=== PATIENT | male | born 1965 | race Caucasian/White ===

== ENCOUNTER 2018-03-07 04:24 | Emergency (ER) | payer BC, SELFPAY ==
[2018-03-07 04:26] VITALS: BP 151/99; PULSE 92; RESP 22; TEMP 36.6; O2SAT 98; BMI 33.9
[2018-03-07 04:32] VITALS: O2SAT 98
--- NOTE | 2018-03-07 04:50 | EKG12_ITS ---
Test Reason : CP Blood Pressure : / mmHG Vent. Rate : 092 BPM Atrial Rate : 092 BPM P-R Int : 160 ms QRS Dur : 076 ms QT Int : 336 ms P-R-T Axes : 051 050 053 degrees QTc Int : 415 ms Normal sinus rhythm Normal ECG Confirmed by ANGELA ARCINIEGA, JC ([id number]), supervising editor trailer CAVLIN SOLOMON ([id number]) on 03/11/2018 2:57:05 PM Referred By: ROBE Confirmed By:JC MILLER MD
--- NOTE | 2018-03-07 04:52 | RAD_ITS ---
STUDY: X-RAY CHEST REASON FOR EXAM: Male, 52 years old. Chest pain TECHNIQUE: Single frontal view of the chest. COMPARISON: 04/05/2015 FINDINGS: Granuloma in the left upper lobe. The lungs are clear and expanded. There is no demonstrated pleural abnormality. Normal size heart. Normal mediastinum and jose j. Normal visualized pulmonary arteries. Normal visualized aortic arch and descending thoracic aorta. There are diffuse degenerative changes of the visualized thoracic spine. Normal visualized ribs, clavicles, and shoulders. There is no demonstrated abnormality of the visualized soft tissue structures of the upper abdomen. RAD/Chest 1 View (Portable) IMPRESSION: No acute pulmonary findings. Electronically Signed: Franco Neil MD at 5:07 EDT Tel , Service support ,
--- NOTE | 2018-03-07 05:01 | ED.DCSUM_ITS ---
History of Present Illness Chief Complaint: Chest Pain Informant: Patient Onset: Yesterday - around 10-11 hrs ago Context: Sudden Onset - relatively. noticed while at rest. Timing: Continuous - has not resolved since its onset Quality: heavy Location: left chest Current Severity: Moderate Maximum Severity: Moderate Worsened by: pushing himself up w/ his arms while seated. deep inspiration. Relieved by: breathing easy and remaining still. Associated Symptoms: mild sob Narrative: Patient states this is nonexertional, but pleuritic discomfort that is also worse with certain movements. No injury or recent heavy lifting. He felt some heaviness in his left arm earlier but that is gone now. No sharp tearing pain, loss of consciousness, palpitations, sweats, or nausea. No history of heart problems. No recent leg pain or swelling. 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 No recent hospitalizations, surgeries, no prior DVT or PE. 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 no other illicit substances. Review of Systems All systems negative except as indicated Cardiovascular: Reports: Chest pain. Denies: Palpitations, Heart racing Respiratory: Reports: Dyspnea. Denies: Cough, Dyspnea on exertion, Orthopnea, Paroxysmal nocturnal dyspnea Gastrointestinal: Denies: Abdominal pain, Nausea, Vomiting, Diarrhea Musculoskeletal: Reports: Extremity Pain - LUE, gone. Denies: Back pain, Swelling Skin: Denies: Rash Neurological: Denies: Headache Physical Exam Vital Signs/Narrative: Vital Signs Temp Pulse Resp BP Pulse Ox 03/07/18 04:32 98 03/07/18 04:26 97.9 F 92 22 H 151/99 H 98 Inital Vital Signs reviewed: Yes General: Well nourished, Well developed, - - well-appearing, nad Head: Normocephalic, Atraumatic Eyes: Perrl, EOMI ENT: Moist mucous membranes, No rhinorrhea Neck: Supple, Nontender, No JVD Cardiovascular: Regular rate, Regular rhythm, No murmurs, Normal S1, Normal S2 Respiratory: No distress, CTA bilaterally, Chest nontender Abdomen: Soft, Nontender, Nondistended, Normal bowel sounds Back: Nontender, Normal Inspection Extremities: Nontender - no calf tenderness, No edema Skin: Normal color, No rash Neurological: Alert, Oriented x3, Cranial nerves II-XII grossly intact, Normal Strength, Normal Sensation Psychological: Normal affect Diagnostic/Tx/Re-eval Impressions Chest X-Ray 03/07/18 04:52 IMPRESSION: No acute pulmonary findings. Electronically Signed: Franco Neil MD at 5:07 EDT Tel , Service support , 03/07/18 04:52 Chest 1 View (Portable) [RAD] Stat Laboratory Results 03/07/18 03/07/18 03/07/18 Range/Units 04:20 04:20 04:20 WBC 12.9 H (4.4-11.0) K/mm3 RBC 5.16 (4.6-6.2) M/mm3 Hgb 16.0 (13.0-16.5) g/dl Hct 46.0 (40-54) % MCV 89.1 (80-94) fL MCH 31.0 (27.0-32.0) pg MCHC 34.8 (32-36) g/gl RDW 13.0 (11.6-14.6) % RDW Differential 41.9 (35.1-43.9) fl Plt Count 204 (150-450) K/mm3 MPV 11.0 (6.2-12.0) fl Immature Gran % (Auto) 0.300 (0.0-0.9) % Neut % (Auto) 60.3 (47-70) % Lymph % (Auto) 24.4 (19-41) % Cobb % (Auto) 10.5 H (0-10) % Eos % (Auto) 4.0 (0-5) % Baso % (Auto) 0.5 (0-1) % Absolute Neuts (auto) 7.8 H (2.0-7.7) X10^3/uL Absolute Lymphs (auto) 3.14 (0.83-4.51) X10^3/ul Total Counted Not Reportable D-Dimer Quant (PE/DVT) < 0.27 L (0.27-0.49) FEU/ug/m Sodium 142 (136-145) mmol/L Potassium 4.3 (3.5-5.1) mmol/L Chloride 107 (98-107) mmol/L Carbon Dioxide 26.0 (21.0-32.0) mmol/L Anion Gap 9 (5-15) BUN 17 (7-18) mg/dL Creatinine 1.20 (0.70-1.30) mg/dL Estim Creat Clear Calc 79.04 ml/min Est GFR (MDRD) Af Amer 82 (>60) mL/min Est GFR (MDRD) Non-Af 68 (>60) mL/min BUN/Creatinine Ratio 14.2 (10-20) RATIO Glucose 108 H (74-106) mg/dL Calcium 8.9 (8.5-10.1) mg/dL Troponin I < 0.015 (<0.045) ng/mL - Rhythm Strip Rhythm Strip: Sinus Rhythm Rate: 90 Ectopy: None - EKG 1 Interpretation: Sinus Rhythm, No Acute Injury Pattern, - - nml axis and intervals. nml EKG. - Medical Decision Making EKG and troponin are normal, d-dimer is negative, chest x-ray is normal, and the rest of his labs are unremarkable. After Toradol, his symptoms are improved. Given all of this especially in context of symptoms that have been continuous for almost 12 hours, with a set of negative cardiac enzymes, I am comfortable discharging him home. His history is atypical for cardiac, and given the fact that it is most prominently worsened by certain types of movement or sitting up, I think the etiology is more likely to be musculoskeletal although I am not able to palpate and reproduce the symptoms. Not able to rule out the possibility of esophageal etiology, but less likely given NSAIDs made it better. Pleurisy and pericarditis are in the differential diagnosis, but there are no EKG changes suspicious for pericarditis here. Will prescribe him naproxen and he is encouraged to follow-up with his doctor if symptoms persist longer than 3-5 days. He is comfortable with that plan. ED Disposition - Plan for ED Patient: Disposition: Home or Assisted Living Chief Complaint: Chest Pain Diagnosis: Pleuritic chest pain Instructions: ED Chest Pain NonCardiac Prescriptions: Naproxen [Naprosyn] 500 mg PO BID PRN #20 tab Referrals: Franco Martinez MD [Primary Care Provider] - 1 Week if not improving
[2018-03-07] MEDS: Ketorolac 30 MG/ML Syringe IV (05:09)
[2018-03-07 05:25] LABS: Absolute Lymphocyte Count 3.14 X10^3/ul (0.83-4.51); Absolute Neutrophil Count 7.8 X10^3/uL (2.0-7.7); Basophil# 0.07 X10^3/uL; Basophil% 0.5 % (0-1); Eosinophil# 0.51 X10^3/uL; Lymphocyte # 3.14 X10^3/ul (4.0); Lymphocyte % 24.4 % (19-41); Mean Corp Hgb Conc 34.8 g/gl (32-36); Mean Corpuscular Volume 89.1 fL (80-94); Monocyte# 1.35 X10^3/uL; Monocyte% 10.5 % (0-10); Neutrophil # 7.77 X10^3/uL (2.7-7.7); Neutrophil % 60.3 % (47-70); Platelet Count 204 K/mm3 (150-450); RBC Distribution Width SD 41.9 fl (35.1-43.9); Red Blood Count 5.16 M/mm3 (4.6-6.2); White Blood Count 12.9 K/mm3 (4.4-11.0)
[2018-03-07 05:26] LABS: POSITIVE COUNT NO; POSITIVE DIFFERENTIAL NO; POSITIVE MORPHOLOGY NO
[2018-03-07 05:39] LABS: D-Dimer Quantitative (DVT/PE) < 0.27 FEU/ug/m (0.27-0.49)
[2018-03-07 05:49] LABS: Anion Gap 9 (5-15); BUN 17 mg/dL (7-18); BUN/Creat Ratio 14.2 RATIO (10-20); Calcium,Total 8.9 mg/dL (8.5-10.1); Chloride 107 mmol/L (98-107); EST Glomerular Filtration Rate 68 mL/min (>60); Est Glom Filt Rate - Afr Amer 82 mL/min (>60); Estimated Creatinine Clearance 79.04 ml/min; Glucose 108 mg/dL (74-106); Potassium 4.3 mmol/L (3.5-5.1); Sodium Level 142 mmol/L (136-145)
[2018-03-07 06:06] VITALS: BP 133/78; PULSE 76; RESP 18; O2SAT 97
[2018-03-07 06:39] VITALS: BP 130/89; PULSE 72; RESP 16; O2SAT 99
== END 2018-03-07 06:40 | disposition home or self-care (01) ==
PROVIDERS: Emergency Provider Emergency Medicine; Family Provider Family Medicine; PCP Family Medicine
DX: R07.89 Other chest pain (principal); E03.9 Hypothyroidism, unspecified; Z87.891 Personal history of nicotine dependence
CPT/HCPCS: 71045; 80048; 84484; 85025; 85379; 93005; 96374; 99284; A4216

== ENCOUNTER 2019-10-19 21:13 | Emergency (ER) | payer BC, SELFPAY ==
[2019-10-19 21:13] VITALS: BP 170/96; PULSE 93; RESP 18; TEMP 36.4; O2SAT 97; BMI 31.6
--- NOTE | 2019-10-19 21:35 | CT_ITS ---
STUDY: CT ABDOMEN AND PELVIS WITHOUT CONTRAST REASON FOR EXAM: Male, 54 years old. BACK PAIN STARTED LAST NIGHT/ CLAMMY RADIATION DOSAGE (If Supplied By Facility): CTDIvol = ( 16.10 ) mGy, DLP = ( 868.77 ) mGycm TECHNIQUE: Transaxial images were obtained from the dome of the diaphragm to the symphysis pubis without oral contrast, and without intravenous contrast. Sagittal and coronal images were reconstructed. Individualized dose optimization techniques were used for this CT. COMPARISON: None. FINDINGS: Calcified granuloma in the right lower lobe. Lung bases are otherwise clear. The liver is unremarkable. The gallbladder is unremarkable. The spleen and pancreas are unremarkable. The adrenal glands are normal. The kidneys are unremarkable. No stones or hydronephrosis. The aorta is normal in caliber. There is no free fluid, free air, or organized collection. No bowel obstruction or inflammatory change. Normal appendix. Urinary bladder is unremarkable. Normal abdominal wall. Normal osseous structures. CT/Abdomen/Pelvis without Cont IMPRESSION: Old healed granulomatous disease, otherwise negative CT of the abdomen and pelvis. Electronically Signed: Donna Toure MD at 22:53 EDT Tel , Service support ,
[2019-10-19] MEDS: Ondansetron 4 MG/2 ML Vial IV (21:51)
[2019-10-19] MEDS: Morphine 4 MG/ML Syringe IV (21:51)
[2019-10-19] MEDS: Ketorolac 30 MG/ML Syringe IV (21:51)
[2019-10-19 22:02] LABS: Bacteria 0 SEEN /hpf (None Seen); Mucous, Urine 0 SEEN /hpf (<or=2+); Red Blood Cells-Urine 0 SEEN /hpf (0-5); White Blood Cells 0 SEEN /hpf (0-5)
[2019-10-19 22:06] LABS: Absolute Lymphocyte Count 2.19 X10^3/uL (0.83-4.51); Absolute Neutrophil Count 5.6 X10^3/uL (2.0-7.7); Basophil# 0.09 X10^3/uL; Eosinophil# 0.44 X10^3/uL; Eosinophils% 4.7 % (0-5); Hematocrit 46.3 % (40-54); Hemoglobin 15.5 g/dL (13.0-16.5); Lymphocyte # 2.19 X10^3/ul (4.0); Lymphocyte % 23.4 % (19-41); Mean Corp Hgb Conc 33.5 g/dL (32-36); Mean Corpuscular Hgb 29.6 pg (27.0-32.0); Mean Corpuscular Volume 88.4 fL (80-94); Mean Platelet Vol. 10.7 fl (6.2-12.0); Monocyte# 0.99 X10^3/uL; Monocyte% 10.6 % (0-10); NRBC Flagged by Analyzer 0 % (0-5); Neutrophil # 5.62 X10^3/uL (2.7-7.7); Neutrophil % 60.1 % (47-70); Platelet Count 211 K/mm3 (150-450); RBC Distribution Width CV 12.1 % (11.6-14.6); RBC Distribution Width SD 39.1 fl (35.1-43.9); Red Blood Count 5.24 M/mm3 (4.6-6.2); White Blood Count 9.4 K/mm3 (4.4-11.0)
[2019-10-19 22:07] LABS: Color, Urine Yellow (Yellow); Glucose, Dipstick Normal (Normal); Ketone-Dipstick Negative (Negative); Leukocyte Esterase-Dipstick Negative /ul (Negative); Nitrite-Dipstick Negative (Negative); Occult Blood-Urine Negative /ul (Negative); Protein-Dipstick Negative (Negative); Specific Gravity, Urine 1.015 (1.002-1.030); Urine Bilirubin Dipstick Negative (Negative); Urine Clarity Sl. Cloudy (Clear); Urine Urobilinogen Normal (Normal); Urine pH 6.5 (5.0 - 8.0)
[2019-10-19 22:17] LABS: Anion Gap 6 (5-15); BUN 15 mg/dL (7-18); BUN/Creat Ratio 12.3 RATIO (10-20); Calcium,Total 9.1 mg/dL (8.5-10.1); Chloride 107 mmol/L (98-107); Creatinine, Serum 1.22 mg/dL (0.70-1.30); EST Glomerular Filtration Rate 66 mL/min (>60); Est Glom Filt Rate - Afr Amer 80 mL/min (>60); Estimated Creatinine Clearance 78.23 ml/min; Glucose 109 mg/dL (74-106); Potassium 3.8 mmol/L (3.5-5.1); Sodium Level 140 mmol/L (136-145)
[2019-10-19 22:19] LABS: Squamous Epithelial Cells - UA 0-5 SEEN /hpf (0-5)
--- NOTE | 2019-10-19 22:21 | ED.DCSUM_ITS ---
History of Present Illness Chief Complaint: Back Informant: Patient Onset: Yesterday Context: Gradual Onset Timing: Intermittent Current Severity: Moderate Maximum Severity: Moderate Narrative: The patient is a 54-year-old male medical history significant for prediabetes and ataxia that presents to the emergency department with right flank pain. Patient symptoms began yesterday. He states he had a stabbing pain and felt mildly nauseated. He states if he moves or twists, the pain worsens. He states the pain was better today but then returned. He states that he felt sweaty and nauseated with the pain. The pain did not radiate. He denies any trouble urinating. He denies any pain down his legs. He denies any recent trauma. He has not had cough or shortness of breath. He denies any history of pulmonary embolus or kidney stone. Prior similar symptoms: No Recent Illness/Hospitalization: No Past Medical History - Allergies and Home Meds Allergies/Adverse Reactions: Allergies No Known Allergies Allergy (Verified 10/19/19 21:17) Primary Care Physician: Franco Martinez MD [Primary Care Provider] - Prior records reviewed: Yes Past Medical History: - - Ataxia, Surgical History: noncontributory - anxiety Smoking Status: Current some day smoker Review of Systems General: Denies: Chills, Fever, Sweats Eyes: Denies: Visual changes - bilaterally, Diplopia ENT: Denies: Rhinorrhea, Sore throat Cardiovascular: Denies: Chest pain, Palpitations Respiratory: Denies: Dyspnea, Cough, Dyspnea on exertion Gastrointestinal: Reports: Nausea. Denies: Abdominal pain, Vomiting, Diarrhea, Melena, Hematochezia Genitourinary: Denies: Dysuria, Hematuria, Frequency Musculoskeletal: Reports: Back pain. Denies: Extremity Pain Skin: Denies: Rash, Wounds Neurological: Denies: Headache, Weakness, Numbness Physical Exam Vital Signs/Narrative: Vital Signs Temp Pulse Resp BP Pulse Ox 10/19/19 21:13 97.6 F L 93 18 170/96 H 97 Inital Vital Signs reviewed: Yes General: Well nourished, Well developed, No Acute Distress Head: Normocephalic, Atraumatic Eyes: Perrl, EOMI ENT: Moist mucous membranes, No rhinorrhea Neck: Supple, Nontender Cardiovascular: Regular rate, Regular rhythm, No murmurs Respiratory: No distress, CTA bilaterally, Chest nontender Abdomen: Soft, Nontender, Nondistended, Normal bowel sounds Back: Normal Inspection, CVA tenderness - Tender over the right CVA area with muscle spasm. No step-off. Normal pulses in the lower extremities. Extremities: Nontender, No edema Skin: Normal color, No rash Neurological: Alert, Oriented x3, Cranial nerves II-XII grossly intact, Normal Strength, Normal Sensation Psychological: Normal affect, Normal Mood Diagnostic/Tx/Re-eval Clinical Impression(s) from Imaging Studies Abdomen/Pelvis CT 10/19/19 21:35 IMPRESSION: Old healed granulomatous disease, otherwise negative CT of the abdomen and pelvis. Electronically Signed: Donna Toure MD at 22:53 EDT Tel , Service support , Abnormal Lab Results 10/19/19 10/19/19 10/19/19 20:45 20:45 20:45 WBC 9.4 RBC 5.24 Hgb 15.5 Hct 46.3 MCV 88.4 MCH 29.6 MCHC 33.5 RDW Std Deviation 39.1 RDW Coeff of Kalyan 12.1 Plt Count 211 MPV 10.7 Immature Gran % (Auto) 0.200 Neut % (Auto) 60.1 Lymph % (Auto) 23.4 Starr % (Auto) 10.6 H Eos % (Auto) 4.7 Baso % (Auto) 1.0 Absolute Neuts (auto) 5.6 Absolute Lymphs (auto) 2.19 Nucleated RBC % 0 Sodium 140 Potassium 3.8 Chloride 107 Carbon Dioxide 27.0 Anion Gap 6 BUN 15 Creatinine 1.22 Estim Creat Clear Calc 78.23 Est GFR (MDRD) Af Amer 80 Est GFR (MDRD) Non-Af 66 BUN/Creatinine Ratio 12.3 Glucose 109 H Calcium 9.1 Urine Color Yellow Urine Clarity Sl. Cloudy Urine pH 6.5 Ur Specific [place] 1.015 Urine Protein Negative Urine Glucose (UA) Normal Urine Ketones Negative Urine Occult Blood Negative Urine Nitrite Negative Urine Bilirubin Negative Urine Urobilinogen Normal Ur Leukocyte Esterase Negative Urine RBC 0 SEEN Urine WBC 0 SEEN Ur Squamous Epith Cells 0-5 SEEN Urine Bacteria 0 SEEN Urine Mucus 0 SEEN - Medical Decision Making The patient presents with right-sided flank pain that is worse with motion. It is reproducible on exam. However, given his age and comorbidities I did want to pursue other causes. My suspicion is that this is likely muscular, but the patient had IV established. Screening labs are obtained. Renal function is normal. Urine does not show evidence of infection or blood. Patient underwent CT imaging. There is no evidence of acute intra-abdominal abnormality. On reevaluation, he is feeling improved. He was counseled on using anti- inflammatories. I am hesitant to place him on sedating medications given his underlying ataxia. He is comfortable with this plan of care and will be discharged home. Impression 1. Right-sided flank pain ED Disposition - Plan for ED Patient: Instructions: FLANK PAIN, Uncertain Cause Referrals: Franco Martinez MD [Primary Care Provider] -
[2019-10-19 23:13] VITALS: BP 155/92; PULSE 77; RESP 16; O2SAT 97
== END 2019-10-19 23:14 | disposition home or self-care (01) ==
PROVIDERS: Emergency Provider Emergency Medicine; PCP Family Medicine
DX: R10.9 Unspecified abdominal pain (principal); R73.03 Prediabetes; F41.9 Anxiety disorder, unspecified; F17.200 Nicotine dependence, unspecified, uncomplicated
CPT/HCPCS: 74176; 80048; 81001; 85025; 96374; 96375; 99283; J2405

== ENCOUNTER 2019-10-26 10:32 | Outpatient (RCR) | payer BC, SELFPAY ==
--- NOTE | 2019-10-26 11:45 | HP.PTEVAL ---
Patient's Visit Information BEN SCALES is a 54 year old M referred to Physical Therapy by Shirley Limon MD with a diagnosis of Cerebellar ataxia and ataxic gait. Date of Evaluation: 10/26/19 Physical Therapist: MILLA De La Cruz - Visit Plan Frequency: 2x /Week Duration: 4 Weeks Plan: 2X/ week for 4 weeks for gait training, LE strengthening, stair negotiation, vestibular inputs in safe manner, balance exercises with HEP - Subjective Subjective: Pt report that he does not have controll over his muscles and walking is difficult. He has had no falls lately. He has been using a cane regualrly for the last couple of months. 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 He feels that he has weakness in his legs and when he stands for any length of time his legs start wobbling. He has stairs at home and has a rail on B sides but it is not easy sometimes. 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 He is ok sitting but moving around is where he has trouble. He has been having pain under his ribs for about a week and half now and they did a CATSCAN and was negative. He can not close his eyes or he will fall over - Pain R sided rib pain Pain Intensity (Out of 10): 3 - Objective Gait: Walks with a WBOS and walks on his heels... It is hard for him to stop. He can not rise his heels up without falling over. Is able to raise his toes up but unsteady. Tinetti: 15. LE MMT: B hip flex 3+/5, B knee ext 4/5, B knee flex 3+/5, B hip ext 3+/5, B hip abd 4=/5. Pt has to look at feet to know where they are. Stairs: Up and down stairs recip with 2 hand rails and his feet are all over the place with poor proprioception. - Balance Scores Tinetti Balance Score: 8 Tinetti Gait Score: 7 Tinetti Balance & Gait Score: 15 - Goals Goal 1:: I HEP Goal Time Frame: 4-6 Weeks Goal 2:: Be able to go up and down stairs recip with 2 hand rails with more control over where he is placing his feet. Goal Time Frame: 4-6 Weeks Goal 3:: Increase LE strength by 1/2 muscle grade ( at time of eval: LE MMT: B hip flex 3+/5, B knee ext 4/5, B knee flex 3+/5, B hip ext 3+/5, B hip abd 4-/5). Pt has to look at feet to know where they are Goal Time Frame: 6-8 Weeks Goal 4:: Be able to stand on foam for 1 minute with no ue support without LOB. Goal Time Frame: 4-6 Weeks Goal 5:: Be able to feel 30-50% more secure with his walking with a cane. Goal Time Frame: 4-6 Weeks - Rehabilitation Potential Rehabilitation Potential: Good - Anticipated Interventions Patient/Client Instruction: Educate patient on: Condition, Plan of Care For the Purpose of:: To improve nutrient delivery to tissue, To improve muscle performance and motor function, To improve ability to perform ADL's, To increase tolerance to activity/condition/position, To improve performance and independence with ADL's, To decrease level of supervision to perform tasks, To improve ability of physical actions for home/community/work/leisure, To improve gait and locomotor functions, To improve endurance, To improve balance, To improve safety with gait Therapeutic Exercise to Include: Strength training, Endurance training, Balance training, Postural training, Flexibilty training, Gait and locomotor training, Scapular Strength/Stabilization For the Purpose of:: To improve nutrient delivery to tissue, To increase oxygenation perfusion, To improve muscle performance and motor function, To improve ability to perform ADL's, To increase tolerance to activity/condition/position, To improve performance and independence with ADL's, To improve ability of physical actions for home/community/work/leisure, To improve gait and locomotor functions, To increase flexibility/ROM, To improve endurance, To improve balance, To improve safety with gait Functional Training to Include: Gait training For the Purpose of:: To improve gait and locomotor functions, To improve safety with gait Thank you for the opportunity to evaluate your patient. For Medicare and Medicare HMO plans, please review the plan of care and approve it. It will need to be FAXED BACK to us at [phone] for Medicare purposes. For Medicare only, by signing this I certify the plan of care. Please let me know if there are questions or concerns regarding this plan of care. Physician Signature: Date:
--- NOTE | 2019-11-02 12:15 | HP.PT.NRP ---
BEN SCALES was seen in my office for initial evaluation on 10/26/19. The following Plan of Care was established for this patient: Initial Frequency: 2x /Week Initial Duration: 4 Weeks Patient/Client Instruction: Educate patient on: Condition, Plan of Care For the Purpose of:: To improve nutrient delivery to tissue, To improve muscle performance and motor function, To improve ability to perform ADL's, To increase tolerance to activity/condition/position, To improve performance and independence with ADL's, To decrease level of supervision to perform tasks, To improve ability of physical actions for home/community/work/leisure, To improve gait and locomotor functions, To improve endurance, To improve balance, To improve safety with gait Therapeutic Exercise to Include: Strength training, Endurance training, Balance training, Postural training, Flexibilty training, Gait and locomotor training, Scapular Strength/Stabilization For the Purpose of:: To improve nutrient delivery to tissue, To increase oxygenation perfusion, To improve muscle performance and motor function, To improve ability to perform ADL's, To increase tolerance to activity/condition/position, To improve performance and independence with ADL's, To improve ability of physical actions for home/community/work/leisure, To improve gait and locomotor functions, To increase flexibility/ROM, To improve endurance, To improve balance, To improve safety with gait Functional Training to Include: Gait training For the Purpose of:: To improve gait and locomotor functions, To improve safety with gait This patient was last seen in our office 10/26/19. Pertinent comments regarding their Physical therapy will appear below: DC PT as pt is now out of a job and can not do PT at this time At this point I will be discontinuing this patient from physical therapy. I would be happy to see this patient again in the future if found appropriate by the physician. Thank you! Sarah Dubon, MPT
== END 2019-10-26 19:00 | disposition home or self-care (01) ==
LOC: PT 10:32
PROVIDERS: PCP Family Medicine; Referring Provider Psychiatry & Neurology Neurology; Visit Provider Psychiatry & Neurology Neurology
DX: G11.9 Hereditary ataxia, unspecified (principal)
CPT/HCPCS: 97161

== ENCOUNTER 2020-02-09 10:45 | Day surgery (SDC) | payer BC, SELFPAY ==
--- NOTE | 2020-02-08 17:05 | HP.PCM_ITS ---
History and Physical Date of Admission: 02/09/20 Tu Burris 1965 ? REFERRING PHYSICIAN: Franco Martinez MD ? CHIEF COMPLAINT: Consult ? HPI: The patient is a 54 year old male referred for endoscopy. Tu notes no colon complaints. Patient denies any change in bowel habits, weight changes, blood in stools, black tarry stools or abdominal pain. Denies family history of colon issues. ? The patient NOTES frequent acid reflux. Has never had upper endoscopy. He chews tobacco. ? Tu has not undergone prior endoscopy. ? Patient's past medical history is significant for past meth addiction, had a relapse one year ago for a week. Denies any substance use since that time. ? ? PAST MEDICAL HISTORY ? Anxiety ? ? Ataxia 2020 ? Hypothyroid ? ? Obstructive sleep apnea ? ? Substance abuse (HCC) ? PAST SURGICAL HISTORY ? NONE ? ? ?CURRENT MEDICATIONS ? SYNTHROID 50 mcg tablet Take 1 tablet by mouth once daily. Take on empty stomach. For Thyroid. ? buPROPion XL (WELLBUTRIN XL) 150 mg 24 hr tablet Take 1 tablet by mouth once daily. ? metFORMIN (GLUCOPHAGE) 1,000 mg tablet Take 1 tablet by mouth daily with breakfast. ? peg 3350-Electrolytes (GOLYTELY) 236-22.74-6.74 -5.86 gram suspension Take 4,000 mL by mouth one time only for 1 dose. ? CPAP autoPAP 5-20 cmH2O, mask, tubing, filters, heated humidity, lifetime supplies. Dx: MARIO (Patient not taking: Reported on 10/07/2019 ? ALLERGIES: Patient has no known allergies. ? PERSONAL HISTORY: SOCIAL HISTORY ?Tobacco Use ? Smoking status: Former Smoker ? ? Packs/day: 0.15 ? ? Years: 37.00 ? ? Pack years: 5.55 ? ? Types: Cigarettes ? ? Last attempt to quit: 10/07/2015 ? ? Years since quittin.2 ? Smokeless tobacco: Current User ? ? Types: Chew ? Tobacco comment: 37 years ON AND OFF Substance Use Topics ? Alcohol use: No ? Drug use: Yes ? ? Comment: 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 02/09/2014 last use. Pt states relapsing 4 months ago ? FAMILY HISTORY: ? Heart Mother ? ? Kidney Disease Mother ? ? COPD Mother ? ? Hypertension Mother ? ? Heart Sister ? ? Cancer Father ? ? at 49 yo Lung ? Hypertension Sister ? ? Ataxia Child ? ? Drug abuse Child ? ? REVIEW OF SYMPTOMS: The review of systems data was entered by the nurse and reviewed by me ? Nursing Notes: Patricia Greenberg RN 01/15/2020 2:50 PM Signed REVIEW OF SYSTEMS: General: The patient denies fatigue, denies weight loss, denies weight gain, denies feeling hot, and denies feelings of cold. Eyes: The patient denies glaucoma, notes eye injury/surgery, wears glasses or contacts. Ear/Nose/Throat: The patient denies allergies, denies hayfever, denies ear infections, and denies bloody noses. Cardiovascular: The patient denies chest pain, denies heart disease, denies high blood pressure,denies cardiac stent, denies prior heart attack, denies irregular heart beat, denies high cholesterol, denies poor circulation, denies heart failure, other cardiac issues, denies claudication, denies cold feet, denies peripheral arterial stent. Respiratory: The patient denies tuberculosis, denies pneumonia, denies frequent cough, denies pulmonary embolism, denies shortness of breath, and denies coughing up blood. Gastrointestinal: The patient notes difficulty swallowing, notes acid reflux, denies ulcers, denies vomiting, denies jaundice/hepatitis, denies gallbladder problems, denies black or tarry stools, notes hemorrhoids, denies bleeding from rectum, denies diverticulitis, denies constipation, denies diarrhea, denies loss of stool control, and denies hernias. Kidney/Bladder: The patient denies kidney stones, denies urine infections, and denies bloody urine. Skin: The patient denies a history of skin cancer, denies bleedi ng/changing moles, and denies a history of skin rash. Neurologic: The patient denies a history of epilepsy/convulsions, notes headaches, denies head/spinal injuries, and denies stroke/TIA. Psychiatric: The patient denies psychiatric medications, notes depression, and denies voices, notes substance abuse. Endocrine: The patient notes thyroid disorders, notes diabetes, and denies hormonal problems. Hematologic: The patient denies a history of bruising, denies bleeding, and denies anemia, denies blood clots. Infections: The patient notes a history of measles and mumps, denies rheumatic fever, and denies sexually transmitted diseases. Musculoskeletal: The patient notes back pain/injury, notes back problems, denies sciatica, denies knee/foot trouble, denies arthritis, or denies gout. ?When was patient's last Mammogram screening? N/A ? Last Colonoscopy: never ?Patricia Greenberg RN I have confirmed and edited as necessary, the PFSH and ROS obtained by others. ? ? Physical examination: Vital signs Temp 98.7F General WD/WN WM in no apparent distress, alert and oriented, not septic appearing HEENT Normocephalic. EOM intact with sclera clear and no icterus noted. Neck is supple with no jugular venous distention noted. Trachea is midline. Lungs clear to auscultation. No rales/rhonchi/wheezing noted. No labored breathing noted, such as retractions. No cough heard. Heart normal S1 and S2 auscultated. No rubs/clicks/murmurs noted. Normal size and location by auscultation. Abdomen soft and benign. Normal bowel sounds area auscultated. Extremities no calf tenderness or swelling noted. No pitting edema noted. No obvious deformity noted. Genitourinary/Rectal deferred Skin no rashes noted. Normal skin integrity. Neurological cranial nerves II-XII intact. Normal motor strength in arms and legs. No localized numbness detected. Psychological normal affect, patient is calm and appropriate ? IMPRESSION: encounter for screening colonoscopy ? PLAN: I have reviewed my findings with the surgeon. Will plan for lower endoscopy. We discussed the risks and benefits of the planned endoscopy. I have informed the patient that complications can occur including failure to complete the endoscopy and perforation. The patient had the opportunity to ask questions concerning the planned endoscopy. My staff has also explained the procedure to the patient in understandable terms and has given the patient printed material concerning the procedure. The patient freely consents to surgery. ? I plan to use Golytely bowel preparation ? We will plan for Monitored Anesthetic Care. Past history of substance use. Patient aware he will need PAT and COVID testing prior to procedures ? The patient was offered a surgery/procedure . The provider and patient have discussed in detail the risk of exposure to and/or potential harm posed by the COVID-19 virus with having a surgery/procedure at this time versus the risk of? delaying the surgery/procedure. It is not possible to know either the risk of delaying the surgery or procedure or chance of getting an infection with perfect accuracy, but a joint decision was made between the patient and the provider ?to proceed at this time with the scheduled surgery/procedure. ?? ? Diagnoses: (Z12.11) Encounter for screening for malignant neoplasm of colon (primary encounter diagnosis) (K21.9) Gastroesophageal reflux disease, esophagitis presence not specified (Z87.891) Past history of chewing tobacco use (Z87.898) History of substance use ? ? Stephanie Lazcano PA-C
[2020-02-09] VITALS (7 sets, daily range): BP systolic 108–133; BP diastolic 69–88; PULSE 67–80; RESP 16; TEMP 36.2–36.7; O2SAT 98–100; BMI 30.8
--- NOTE | 2020-02-09 | GASB_PTH ---
PATIENT: BEN SCALES LOC: EN U#:[id number] AGE/SX: 54/M ROOM: RE02/09/[address]: Dr. Milly León MD : 1965 BED: DIS: 02/09/2020 SPEC #: [id number] RECD: 02/09/20 14:09 STATUS: ELAYNE GRACIELA #: [id number] JOSE ALEJANDRO: 02/09/20 00:[address]: Milly León DEPT: SURGICAL PATHOLOGY RECD BY: Amish Wheeler ENTERED: 02/09/20 14:10 SP TYPE: Gastric Bx OTHR DR: Dr. Franco Martinez MD Tissues: A - Gastric mucous membrane B - Gastric mucous membrane C - Rectum, NOS Procedures: Special Stain Group II Surgery Specimen Level IV Alcian Blue/PAS (control) HEADER OPERATION: Colonoscopy, EGD ([facility] [place]) PRE-OP DIAGNOSIS: Reflux, screening colonoscopy TISSUE SUBMITTED: A - Antrum biopsy for histo and H. pylori, B - GE junction biopsy, C - Rectal polyp MICROSCOPIC DIAGNOSIS A. Gastric antrum, biopsy: Minimal chronic inflammation. See comment. B. Gastroesophageal junction, biopsy: Mild chronic inflammation. No evidence of intestinal metaplasia. See comment. C. Rectal polyp, biopsy: Hyperplastic polyp. AM:cherrie 02/10/20 COMMENT A. The results of immunohistochemistry for Helicobacter pylori will be reported separately ([id number]). B. Alcian blue/PAS stain with matched control supports the above diagnosis. MICROSCOPIC DESCRIPTION Slides are reviewed. GROSS DESCRIPTION A - Received in fixative is one container labeled with the patient's name and designated antrum biopsy. The specimen consists of one irregular fragment of light louie soft tissue that measures 0.5 x 0.3 x 0.1 cm. The specimen is totally submitted in one cassette. B - Received in fixative is one container labeled with the patient's name and designated GE junction biopsy. The specimen consists of multiple irregular fragments of light louie soft tissue that in aggregate measure 0.8 x 0.1 x 0.1 cm. The specimen is totally submitted in one cassette. C - Received in fixative is one container labeled with the patient's name and designated rectal polyp. The specimen consists of multiple irregular fragments of light louie soft tissue that in aggregate measure 0.3 x 0.3 x 0.1 cm. The specimen is totally submitted in one cassette. / SJ:rg 02/09/20 TC:3 CPT: 71396 x3, 77549
[2020-02-09] MEDS: Lactated Ringers 1,000 ML 100 ML IV (11:30)
[2020-02-09 11:45] LABS: Bedside Glucose 94 mg/dL (70-110)
--- NOTE | 2020-02-09 12:00 | IMM_PTH ---
PATIENT: BEN SCALES LOC: EN U#:[id number] AGE/SX: 54/M ROOM: RE02/09/[address]: Dr. Milly León MD : 1965 BED: DIS: 02/09/2020 SPEC #: [id number] RECD: 02/10/20 10:01 STATUS: ELAYNE REQ #: [id number] JOSE ALEJANDRO: 02/09/20 12:[address]: Milly León DEPT: IMMUNOHISTOCHEMISTRY RECD BY: Andria Iraheta ENTERED: 02/10/20 10:01 SP TYPE: IMMUNO OTHR DR: Dr. Franco Martinez MD Tissues: A - Stomach, NOS Procedures: H Pylori (initial) PHYSICIAN & INSTITUTION [place] [id number] SPECIMEN INFORMATION: Tissue Source: A - Antrum biopsy Clinical Info: Reflux, screening Specimen Number: [id number] CPT code: 77149 METHODOLOGY: Deparaffinized sections of prefer/formalin-fixed tissue or PAP/DQ stained slides are incubated with monoclonal/polyclonal antibodies/oligonucleotide probes. Localization is made via biotin free immunoperoxidase method. Appropriate controls are performed and reacted as expected. Results on target cell population are indicated in the following table: RESULTS: ANTIBODY / CLONE RESULT Block A H Pylori (polyclonal) negative These tests were developed and their performance characteristics determined by [facility]. They may not have been cleared or approved by the U.S. Food and Drug Administration. The FDA has determined that such clearance or approval is not necessary. INTERPRETATION: A. Antrum biopsy: Negative for Helicobacter pylori organisms. AM:cherrie 02/11/20
--- NOTE | 2020-02-09 15:51 | OP.CCLET_ITS ---
02/09/2020 Franco Martinez Re : Upper GI endoscopy procedure for Tu Ayersfiona Martinez This procedure was performed on Sunday, February 09, 2020. My impressions and recommendations are as follows: Impressions : - Normal first portion of the duodenum and second portion of the duodenum. - Erythematous mucosa in the antrum. Biopsied. - Z-line irregular. Biopsied. Recommendations : - Discharge patient to home (ambulatory). - Resume previous diet. - Continue present medications. - Await pathology results. - My office will set up a virtual visit for discussion of pathology results in 1-2 weeks My findings are described in the full procedure note, which is enclosed. If I can be of further assistance, please feel free to contact me at Doctor phone number(s): , Work: . Sincerely, MD Milly Kinsey MD 02/09/2020 3:50:40 PM This report has been signed electronically.
--- NOTE | 2020-02-09 15:51 | OP.EGD_ITS ---
Patient Name: Tu Burirs Procedure Date: 02/09/2020 11:53 AM Date of : 1965 Age: 54 Procedure: Upper GI endoscopy Indications: Suspected esophageal reflux Providers: Milly León MD Referring MD: Franco Martinez Medicines: See the Anesthesia note for documentation of the administered medications Patient Profile: Refer to note in patient chart for documentation of history and physical. Complications: No immediate complications. Procedure: Pre-Anesthesia Assessment: - see anesthesia note After obtaining informed consent, the endoscope was passed under direct vision. Throughout the procedure, the patient's blood pressure, pulse, and oxygen saturations were monitored continuously. The gastroscope was introduced through the mouth, and advanced to the second part of duodenum. The upper GI endoscopy was accomplished without difficulty. The patient tolerated the procedure well. Scope In: 12:00:20 PM Scope Out: 12:09:16 PM Total Procedure Duration Time 0 hours 8 minutes 56 seconds Findings: The first portion of the duodenum and second portion of the duodenum were normal. Striped mildly erythematous mucosa without bleeding was found in the gastric antrum. Biopsies were taken with a cold forceps for histology. Verification of patient identification for the specimen was done by the nurse. Estimated blood loss was minimal. The Z-line was irregular. Biopsies were taken with a cold forceps for histology. Verification of patient identification for the specimen was done by the nurse. Estimated blood loss was minimal. Impression: - Normal first portion of the duodenum and second portion of the duodenum. - Erythematous mucosa in the antrum. Biopsied. - Z-line irregular. Biopsied. Recommendation: - Discharge patient to home (ambulatory). - Resume previous diet. - Continue present medications. - Await pathology results. - My office will set up a virtual visit for discussion of pathology results in 1-2 weeks Procedure Code(s): --- Professional --- 33122, Esophagogastroduodenoscopy, flexible, transoral; with biopsy, single or multiple Diagnosis Code(s): --- Professional --- K31.89, Other diseases of stomach and duodenum K22.8, Other specified diseases of esophagus CPT copyright 2017 [employer]. All rights reserved. The codes documented in this report are preliminary and upon remote medical coder review may be revised to meet current compliance requirements. MD Milly Kinsey MD 02/09/2020 3:50:40 PM This report has been signed electronically. Number of Addenda: 0 Note Initiated On: 02/09/2020 11:53 AM
--- NOTE | 2020-02-09 15:53 | OP.COLON_ITS ---
Patient Name: Tu Burris Procedure Date: 02/09/2020 12:10 PM Date of : 1965 Age: 54 Procedure: Colonoscopy Indications: Screening for colorectal malignant neoplasm Providers: Milly León MD Referring MD: Franco Martinez Medicines: See the Anesthesia note for documentation of the administered medications Patient Profile: Refer to note in patient chart for documentation of history and physical. Last Colonoscopy: none. The patient's first colonoscopy is today. Complications: No immediate complications. Procedure: Pre-Anesthesia Assessment: - see anesthesia note After I obtained informed consent, the scope was passed under direct vision. Throughout the procedure, the patient's blood pressure, pulse, and oxygen saturations were monitored continuously. The pediatric colonoscope was introduced through the anus and advanced to the cecum, identified by the appendiceal orifice, ileocecal valve and palpation. The colonoscopy was performed without difficulty. The patient tolerated the procedure well. The quality of the bowel preparation was adequate. Scope In: 12:11:43 PM Scope Withdrawal Time 0 hours 13 minutes 27 seconds Scope Out: 12:29:06 PM Total Procedure Duration Time 0 hours 17 minutes 23 seconds Findings: The perianal and digital rectal examinations were normal. Non-bleeding internal hemorrhoids were found. A 2 to 5 mm polyp was found in the recto-sigmoid colon. The polyp was sessile. The polyp was removed with a cold snare. Resection and retrieval were complete. Verification of patient identification for the specimen was done by the nurse. Estimated blood loss was minimal. Impression: - Non-bleeding internal hemorrhoids. - No specimens collected. Recommendation: - Repeat colonoscopy in 5 years for surveillance. - Return to primary care physician PRN. - My office will set up a virtual visit for discussion of pathology results in 1-2 weeks - Continue present medications. Procedure Code(s): --- Professional --- 38199, Colonoscopy, flexible; with removal of tumor(s), polyp(s), or other lesion(s) by snare technique Diagnosis Code(s): --- Professional --- Z12.11, Encounter for screening for malignant neoplasm of colon K64.8, Other hemorrhoids CPT copyright 2017 [employer]. All rights reserved. The codes documented in this report are preliminary and upon label coder review may be revised to meet current compliance requirements. MD Milly Kinsey MD 02/09/2020 3:53:16 PM This report has been signed electronically. Number of Addenda: 0 Note Initiated On: 02/09/2020 12:10 PM
--- NOTE | 2020-02-09 15:54 | OP.CCLET_ITS ---
02/09/2020 Franco Martinez Re : Colonoscopy procedure for Tu Burris Deafiona Martinez This procedure was performed on Sunday, February 09, 2020. My impressions and recommendations are as follows: Impressions : - Non-bleeding internal hemorrhoids. - No specimens collected. Recommendations : - Repeat colonoscopy in 5 years for surveillance. - Return to primary care physician PRN. - My office will set up a virtual visit for discussion of pathology results in 1-2 weeks - Continue present medications. My findings are described in the full procedure note, which is enclosed. If I can be of further assistance, please feel free to contact me at Doctor phone number(s): , Work: . Sincerely, MD Milly Kinsey MD 02/09/2020 3:53:16 PM This report has been signed electronically.
== END 2020-02-09 13:24 | disposition home or self-care (01) ==
LOC: EN 10:45 → AC 10:48
PROVIDERS: Anesthesiology; PCP Family Medicine; Referring Provider Family Medicine; Visit Provider Surgery
PROC: 0DJD8ZZ Inspection of Lower Intestinal Tract, Via Natural or Artificial Opening Endoscopic (ICD-10-PCS; CPT 45378; principal; 2020-02-09 11:55)
DX: Z12.11 Encounter for screening for malignant neoplasm of colon (principal); K64.8 Other hemorrhoids; K62.1 Rectal polyp; K31.89 Other diseases of stomach and duodenum; K22.8 Other specified diseases of esophagus; E11.9 Type 2 diabetes mellitus without complications; E03.9 Hypothyroidism, unspecified; G47.33 Obstructive sleep apnea (adult) (pediatric); F32.9 Major depressive disorder, single episode, unspecified; F41.9 Anxiety disorder, unspecified; F17.220 Nicotine dependence, chewing tobacco, uncomplicated; Z86.59 Personal history of other mental and behavioral disorders; Z79.84 Long term (current) use of oral hypoglycemic drugs; Z79.899 Other long term (current) drug therapy; Z11.59 Encounter for screening for other viral diseases
CPT/HCPCS: 43239; 45385; 82962; 87635; 88305; 88313; 88342; G2023; J7120; J2405; U0003

== ENCOUNTER 2021-05-18 07:21 | Emergency (ER) | payer BC, SELFPAY ==
[2021-05-18 07:22] VITALS: BP 161/100; PULSE 89; RESP 16; TEMP 36.6; O2SAT 97; BMI 32.0
--- NOTE | 2021-05-18 07:30 | ED.VIS.FALL ---
HPI HPI - Fall History of Present Illness Chief Complaint: Fall Detail of Chief Complaint: Posterior lower right rib pain status post fall Informant: patient Occured/Mechanism Occurred: Hours (Fell getting out of bed at 0230) Mechanism/Context: Yes same level fall and Yes other see narrative below Narrative: History of ataxia. Did not use his cane when he got out of bed Pain/Injury Location: Right lower ribs 10, 11 and 12 posteriorly Pain Location: back Quality of Pain: Dull and Aching Current Severity: Mild Maximum Severity: Severe Worsened by: Breathing, movement Relieved by: Nothing Associated Symptoms Associated Symptoms: Negative for Parasthesias, Weakness, Loss of function and Loss of consciousness Narrative Narrative: Patient is a 54-year-old male who has history of ataxia who presents with posterior right lower rib pain status post fall. He fell getting out of bed. Denies use his cane. He denies head trauma. Eyes loss of conscious. Nuys neck pain. Does report shortness of breath. Denies chest discomfort. Denies black or maroon-colored stool. He states there was no blood in his urine when he urinated nor was his urine dark in color. He is not on an anticoagulant. He does have history of hypothyroidism and type 2 diabetes. Tetanus Immunization: 5-10 years Prior similar symptoms: Yes Recent Illness/Hospitalization: No PFSH PFSH Medical History (Updated 05/18/21 @ 08:[address] Pedro Vanessa MD) Ataxia Home Medications levothyroxine [Synthroid] 50 tab PO DAILY 03/07/18 [History Last Taken Unknown] bupropion HCl 150 mg PO DAILY 10/19/19 [History Last Taken Unknown] metformin 1,000 mg PO DAILY 10/19/19 [History Last Taken Unknown] hydrocodone-acetaminophen 1 tab PO Q6H PRN PRN 3 Days #10 tablet 05/18/21 [Rx Last Taken Unknown] Allergy/AdvReac Type Severity Reaction Status Date / Time No Known Allergies Allergy Verified 05/18/21 07:24 Social History (Updated 05/18/21 @ 07:[address] Pedro Vanessa MD) household members: none Smoking Status: Never smoker substance use type: does not use ROS ROS ED Constitutional Constitutional ED: Denies chills, fever(s), subjective or sweats Eyes Eyes: Denies blurry vision, change in vision or diplopia ENT ENT ED: Denies ear pain, rhinorrhea or sore throat Cardiovascular Cardiovascular: Denies chest pain or palpitations Respiratory/Chest Respiratory/Chest: Reports dyspnea; Denies cough, dyspnea on exertion or sputum Gastrointestinal Gastrointestinal: Denies abdominal pain, nausea or vomiting Genitourinary Genitourinary ED: Denies hematuria Musculoskeletal Musculoskeletal: Reports back pain; Denies arthralgias, myalgias or neck pain Integumentary Denies Abrasions or rash Neurologic Neurologic: Denies headache(s) or weakness Hematologic/Lymphatic Hematologic/Lymphatic: Denies easy bleeding or easy bruising EXAM Physical Exam Const Vital Signs: 05/18/21 07:22 05/18/21 07:36 Temperature 97.8 F Temperature Source Temporal Pulse Rate 89 Respiratory Rate 16 Respiratory Effort Normal Non-Labored Blood Pressure 161/100 H Blood Pressure Mean 120 Pulse Ox 97 Oxygen Delivery Method Room Air Room Air Positive well nourished, well developed and obese General Appearance ED: well developed and other Patient appears uncomfortable walking back to the examination room and getting on the examination cot. Nutritional Appearance: obese HEENT Reports normocephalic atraumatic Eyes PERRL and EOMs intact bilaterally General Eye ED: Negative for pale conjunctiva or scleral icterus Neck full ROM and supple Resp normal respiratory effort and clear to auscultation bilaterally Auscultation: diminished lung sounds right Cardio regular rate, regular rhythm, S1 normal heart sound, S2 normal heart sound and no murmurs GI non-tender and no masses GI Narrative: There is no tenderness to palpation right upper quadrant. There is no hepatosplenomegaly. Auscultation: normoactive bowel sounds Palpation: soft Back/Spine Negative for no CVA tenderness General Back: CVA tenderness Cervical Spine: Negative for cervical spine tenderness Thoracic Spine / Upper Back: Negative for thoracic spinal tenderness Lumbar Spine / Lower Back: Negative for lumbar spinal tenderness or paraspinal muscle tenderness Neuro oriented x3, CN's II-XII intact bilaterally and moves all extremities [place] Coma Scale: document GCS findings Spontaneous Obeys Commands Oriented 15 Sensorium / Orientation: alert Psych mental status grossly normal and thought process normal Skin Lesions: no lesions Rashes: no rashes and No rashes noted MDM MDM MDM Narrative Medical decision making narrative: Chest x-ray was obtained to evaluate for pneumothorax and hemothorax as well as rule out rib fracture. Patient was medicated with [place]. Radiography Diagnostic Testing: Rib detail with chest x-ray was obtained. There is no months of pneumothorax, hemothorax or fractured ribs. Cardiac silhouette and size normal. Hilum is normal. Lung parenchyma, reveals chronic changes. Discharge Plan Triage Chief Complaint: Fall ED Provider: Pedro Vanessa Dx/Rx/DC Orders Clinical Impression: Contusion of rib on right side Prescriptions: New hydrocodone-acetaminophen [hydrocodone-acetaminophen] 1 TABLET tablet 1 tab PO Q6H PRN PRN (Reason: Pain) 3 Days Qty: 10 RF: 0 No Action levothyroxine [Synthroid] 25 MCG tablet 50 tab PO DAILY RF: 0 bupropion HCl 150 MG tablet extended release 24 hr 150 mg PO DAILY RF: 0 metformin 1,000 MG tablet extended release 24hr 1,000 mg PO DAILY RF: 0 Primary Care Provider: Franco Martinez Referrals: Franco Martinez MD [Primary Care Provider] - 1 Week if not improving Disposition Disposition: Home, Self Care
[2021-05-18] MEDS: HYDROcodone Bitartrate/Apap 5/325 Tablet PO (07:35)
--- NOTE | 2021-05-18 08:05 | RAD_ITS ---
STUDY: X-RAY - UNILATERAL RIBS ( RIGHT ) WITH CHEST REASON FOR EXAM: Male, 55 years old. Pain to palpation lower right ribs posteriorly stat TECHNIQUE - RIBS: 4 view(s) of the ribs. TECHNIQUE - CHEST: Single PA view of the chest. COMPARISON: 03/07/2018. FINDINGS: Cardiac silhouette unremarkable. Pulmonary vascularity unremarkable. Aorta unremarkable. No focal patchy airspace opacities. No pleural effusions. Punctate left upper lung granuloma. Upper abdomen unremarkable. Acute right minimally displaced eighth rib fracture. No pneumothorax. RAD/Ribs Uni Min 3V w/PA Chest IMPRESSION: Acute minimally displaced right eighth rib fracture No acute cardiopulmonary findings Electronically Signed: Juan Jose Agosto DO at 8:34 EDT Tel , Service support ,
[2021-05-18 09:10] VITALS: RESP 18
== END 2021-05-18 09:11 | disposition home or self-care (01) ==
PROVIDERS: Emergency Provider Emergency Medicine; PCP Family Medicine
DX: S20.211A Contusion of right front wall of thorax, initial encounter (principal); W06.XXXA Fall from bed, initial encounter; Y93.89 Activity, other specified; Y92.9 Unspecified place or not applicable; Y99.8 Other external cause status; E03.9 Hypothyroidism, unspecified; E11.9 Type 2 diabetes mellitus without complications; E66.9 Obesity, unspecified; Z68.32 Body mass index [BMI] 32.0-32.9, adult; Z79.84 Long term (current) use of oral hypoglycemic drugs; Z79.899 Other long term (current) drug therapy
CPT/HCPCS: 71101; 99283

== ENCOUNTER 2023-06-04 07:46 | Emergency (ER) | payer BC, SELFPAY ==
[2023-06-04 07:47] VITALS: BP 158/102; PULSE 107; RESP 18; TEMP 36.6; O2SAT 98
[2023-06-04 07:49] VITALS: BMI 30.4
--- NOTE | 2023-06-04 07:57 | EDS_ITS ---
HPI History of Present Illness Chief Complaint: Upper Extremity Injury Narrative Narrative: 7-year-old male, [id number], past medical history of depression/anxiety and prediabetes, hypothyroidism, presents with injury to his right shoulder that he sustained yesterday evening around 9:30 PM. He states he has habits where he frequently falls or might lose his balance. Yesterday at 9:30 in the evening, approximately 10-1/2 hours ago, he had stumbled, and tried to brace himself with his right arm. He heard a loud snap and felt pain in his right shoulder. Since then, he has had problems moving his right shoulder externally. He is able to bend and flex at the elbow, but has pain when trying to move his right arm/upper arm. It is to the point where he could not even move it enough to put his arm in the sleeve to get dressed to come to the emergency department. He denies other injury. Pain is definitely worse with movement and range of motion limited secondary to his injury. [facility] Medical History Ataxia Home Medications levothyroxine 25 mcg tablet (Synthroid) 50 tab PO DAILY 03/07/18 [History Last Taken Unknown] bupropion HCl 150 mg 24 hr tablet, extended release 150 mg PO DAILY 10/19/19 [History Last Taken Unknown] metformin 1,000 mg tablet,extended release 24hr 1,000 mg PO DAILY 10/19/19 [History Last Taken Unknown] hydrocodone-acetaminophen 5-325mg 5mg-325mg 1 tab PO Q6H PRN PRN Pain 3 days #12 TABLETS 06/04/23 [Rx Last Taken Unknown] omeprazole 40 mg capsule,delayed release 40 mg PO DAILY 06/04/23 [History Last Taken Unknown] Allergy/AdvReac Type Severity Reaction Status Date / Time No Known Allergies Allergy Verified 06/04/23 07:49 Social History household members: none Smoking Status: Current every day smoker tobacco type: smokeless tobacco substance use type: does not use ROS ROS ED ROS Narrative Constitutional: No fever, no chills. HEENT: No sore throat. No neck pain. No loss of vision. No rhinorrhea. Cardiovascular: No chest pain. No palpitations. No pedal edema. Respiratory: No cough, no shortness of breath. Abdominal: No abdominal pain. No nausea. No vomiting. Genitourinary: No dysuria. No hematuria. Musculoskeletal: No myalgias. Shoulder pain, worse with movement. Neurologic: No headaches. No dizziness. No lightheadedness. Skin: No rash. No change in color. Psychiatric: No depression. No anxiety. EXAM Physical Exam Narrative Exam Narrative: Afebrile. Vital signs noted. HEENT: Normocephalic. Atraumatic. PERRL, EOMI. Neck soft and supple. No point tenderness or step off. Cardiovascular: Regular rate and rhythm. No murmurs, rubs, or gallops appreciated. Respiratory: No tachypnea. Lungs clear to auscultation bilaterally. Gastrointestinal: Abdomen soft, nontender, with normoactive bowel sounds. No rebound or guarding. Neurological: Awake. Alert. Nonfocal, nonlateralizing. Skin: No rash. Normal color. No pallor. Musculoskeletal: No pedal edema. Range of motion right shoulder secondary to pain, no palpable deficit, diffuse tenderness to palpation right proximal humer us. Able to flex and extend at elbow, able to pronate supinate. Uninjured wrist and below. Able to oppose thumb. Palpable radial pulse. Good capillary refill of fingers. No cervical neck pain, no trapezial tenderness. No crepitance. Const Vital Signs: 06/04/23 07:47 Temperature 97.9 F Temperature Source Temporal Pulse Rate 107 H Respiratory Rate 18 Blood Pressure 158/102 H Blood Pressure Mean 120 Pulse Ox 98 Oxygen Delivery Method Room Air MDM MDM MDM Narrative Medical decision making narrative: In the differential diagnosis is shoulder sprain/strain versus fracture versus dislocation. He was given 1 [place] tablet for analgesia here in the emergency department and x-rays obtained of the right shoulder in 3 views. X-rays of the right shoulder interpreted by myself shows no evidence of acute fracture or dislocation. I reviewed the radiology report which confirms my independent interpretation. At this point in time, he was given a sling for comfort but told to exercise his shoulder a few times a day to prevent adhesive capsulitis. He will follow-up with orthopedics as soon as possible, within the next week. I wrote him a prescription for 12 [place] tablets to take over the next 3 days. He was told further narcotic analgesics should come from orthopedics or his primary care provider. He may have more of a rotator cuff tear versus shoulder strain/sprain. He will continue to ice the affected area a few times a day. Return instructions to the emergency department were reviewed. I do not feel he requires observation or transfer at this time. Disposition is discharged home in stable condition. Discharge Plan Triage Chief Complaint: Upper Extremity Injury ED Provider: Matteo Avery Dx/Rx/DC Orders Clinical Impression: Right shoulder strain, Sprain of right shoulder Instructions: ED Rotator Cuff Tear, ED Shoulder Sprain Prescriptions: New hydrocodone-acetaminophen 5-325 mg tablet 1 tab PO Q6H PRN PRN (Reason: Pain) 3 Days Qty: 12 0RF No Action levothyroxine [Synthroid] 25 MCG tablet 50 tab PO DAILY Patient Comments: bupropion HCl 150 MG tablet extended release 24 hr 150 mg PO DAILY metformin 1,000 MG tablet extended release 24hr 1,000 mg PO DAILY omeprazole 40 mg capsule,delayed release(DR/EC) 40 mg PO DAILY Hold Instructions: Order Completed Primary Care Provider: Franco Martinez Referrals: Delta Pereira MD [Med Staff - Active Staff] - As soon as possible Franco Martinez MD [Primary Care Provider] - As soon as possible Activity Restrictions/Additional Instructions: Exercise your right shoulder a few times a day, do not keep it in the sling in the same position for hours at a time. Follow-up with orthopedics as soon as possible. You may need outpatient imaging regarding your right shoulder pain. Disposition Disposition: Home, Self Care
[2023-06-04] MEDS: HYDROcodone Bitartrate/Apap 5/325 Tablet PO (08:02)
--- NOTE | 2023-06-04 08:53 | RAD_ITS ---
STUDY: X-RAY - RIGHT SHOULDER REASON FOR EXAM: Male, 57 years old. Trauma, Pain TECHNIQUE: 2 view(s) of the shoulder. COMPARISON: None. FINDINGS: Normal glenohumeral articulation. There is degenerative arthrosis of the acromioclavicular joint without inferior osseous spur formation. Normal acromion. Normal humeral head and visualized proximal humerus. The soft tissue structures are unremarkable. Normal visualized pulmonary apex. RAD/Shoulder min 2 Views IMPRESSION: Mild degenerative changes at the acromioclavicular joint. Electronically Signed: Kaz Knott MD at 9:12 EDT ,
[2023-06-04 09:47] VITALS: BP 134/96; PULSE 82; RESP 16; TEMP 36.9
== END 2023-06-04 09:50 | disposition home or self-care (01) ==
PROVIDERS: Emergency Provider Emergency Medicine; PCP Family Medicine; Visit Provider Emergency Medicine
DX: S46.911A Strain of unspecified muscle, fascia and tendon at shoulder and upper arm level, right arm, initial encounter (principal); S43.401A Unspecified sprain of right shoulder joint, initial encounter; W18.40XA Slipping, tripping and stumbling without falling, unspecified, initial encounter; F17.220 Nicotine dependence, chewing tobacco, uncomplicated
CPT/HCPCS: 73030; 99283

== ENCOUNTER 2023-10-19 23:19 | Emergency (ER) | payer BC, SELFPAY ==
[2023-10-19 23:19] VITALS: PULSE 79; RESP 18; TEMP 36.4; O2SAT 98; BMI 29.7
[2023-10-19 23:23] VITALS: BP 163/102
--- NOTE | 2023-10-19 23:24 | EDS_ITS ---
HPI History of Present Illness Chief Complaint: Flank Pain [facility] Medical History (Updated 10/19/23 @ 23:[address] Missael Rhodes DO) Ataxia Home Medications levothyroxine 25 mcg tablet (Synthroid) 50 tab PO DAILY 03/07/18 [History Last Taken Unknown] bupropion HCl 150 mg 24 hr tablet, extended release 150 mg PO DAILY 10/19/19 [History Last Taken Unknown] metformin 1,000 mg tablet,extended release 24hr (osmotic) 1,000 mg PO DAILY 10/19/19 [History Last Taken Unknown] Allergy/AdvReac Type Severity Reaction Status Date / Time No Known Allergies Allergy Verified 10/19/23 23:19 Surgical History (Updated 10/19/23 @ 23:21 by Ailyn Ortiz) History of shoulder surgery Social History household members: none Smoking Status: Current every day smoker tobacco type: smokeless tobacco substance use type: does not use EXAM Physical Exam Const Vital Signs: 10/19/23 23:19 10/19/23 23:23 10/19/23 23:23 Temperature 97.6 F L Temperature Source Oral Pulse Rate 79 Respiratory Rate 18 Respiratory Effort Normal Non-Labored Blood Pressure 163/102 H Blood Pressure Mean 122 Pulse Ox 98 Oxygen Delivery Method Room Air MDM MDM MDM Narrative Medical decision making narrative: HISTORY OF PRESENT ILLNESS: 58-year-old male here with right flank pain for 4 days. Denies any urinary complaints states is worse with movement. He further states there is no inciting event. No recent trauma. Notes right-sided flank pain is worse with any twisting his upper body. Denies any chest pain, shortness of breath. The patient denies recent surgery in the last 4 weeks or immobilization in the last 3 days, denies previous diagnosis of DVT or PE, hemoptysis, unilateral leg swelling or malignancy with treatment the last 6 months or palliative. No estrogen use noted. Denies history of kidney stones. Pain does not radiate to the groin. There is no rashes. Denies any constipation or diarrhea. REVIEW OF SYSTEMS: Pertinent positives: Right-sided flank pain Pertinent negatives: Fever, vomiting, chest pain, abdominal pain, pleuritic chest pain, hematuria, pain with urination, dysuria, a nausea, vomiting PHYSICAL EXAM: Nursing triage notes reviewed, Vital signs reviewed Constitutional: please see mdm HENT: MMM Eyes: Pupils equal round and reactive to light, Extraocular muscles intact Neck: No stridor, no JVD, full neck ROM Lungs: Clear to auscultation, No wheezing or rales. No increased work of breathing, no conversational dyspnea, no accessory muscle use, no nasal flaring. No respiratory distress noted Heart: Regular rate and rhythm, No murmurs, No rubs and No gallops, 2+ distal pulses (radial, femoral, posterior tibial) in all extremities Abdomen: Soft, there is no tenderness, rigidity, rebound or guarding, no obvious peritoneal signs, no palpable pulsatile abdominal masses, no auscultated abdominal bruit. TTP over right abdominal musculature. This exacerbated with twisting of the torso. : No CVAT Extremities: No edema Neuro: No focal neurological deficits, cranial nerves II through XII intact, 5/5 strength in all extremities. Intact sensation to light touch in all extremities, 2+ reflexes bilateral patella tendons. Normal gait. No ataxia. Skin: No rash or lesions noted MEDICAL DECISION MAKING: Chief Complaint: Flank pain External records reviewed: Imaging reviewed: CT scan of the abdomen pelvis from 2019 shows normal kidneys with a normal caliber aorta Factors affecting care: Type 2 diabetes, hypothyroidism Social determinants of health: none History obtained from others: none Consults: none [facility] Narrative: Patient was initially hypertensive otherwise hemodynamically stable afebrile and nontoxic-appearing. Exam most consistent musculoskeletal etiology I considered the following differential diagnosis: Musculoskeletal pain, nephrolithiasis, pyelonephritis, AAA I offered advanced imaging labs and a urine test however patient stated he did not want these test and he was okay vaccination this a musculoskeletal etiology. The patient and/or family, caregivers express understanding. The patient and/or family, caregivers agrees with the plan. Shared decision making: I will have a discussion with the patient and or visitors regarding risk/benefits of further testing or admission. They will be made aware of of the risk/benefits inherent in this decision they will be given the opportunity to voice understanding. Total critical care time today provided was at least 0 [] minutes. This excludes separately billable procedures. Critical care time (if documented) is secondary to the patient having high probability of clinically significant/life threatening deterioration in the patient's condition which required my urgent intervention. Impression: 1. Musculoskeletal strain Dispo: Discharge This note was generated with [employer] dictation software. It may contain incorrect words, spelling, and punctuation that were not noted in review of the chart prior to signing. Discharge Plan Triage Chief Complaint: Flank Pain ED Provider: Missael Rhodes Dx/Rx/DC Orders Clinical Impression: Muscle strain Instructions: ED Muscle Strain, Abdomen Prescriptions: No Action levothyroxine [Synthroid] 25 MCG tablet 50 tab PO DAILY Patient Comments: bupropion HCl 150 MG tablet extended release 24 hr 150 mg PO DAILY metformin 1,000 MG tablet extended release 24hr 1,000 mg PO DAILY Stand Alone Forms: ED Work / School Excuse Primary Care Provider: Franco Martinez Referrals: Franco Martinez MD [Primary Care Provider] - Activity Restrictions/Additional Instructions: Thank you for trusting us with your care today! Please take Tylenol (2 pills, 650 mg), ibuprofen (2 pills, 400 mg) every 6 hours as needed for pain and fever control. Do not take more than 4000 mg of Tylenol in 24. This is equivalent to 8 pills of 500 mg Tylenol (extra strength) or 12 pills of 325 mg Tylenol Please go to local pharmacy or drugstore and obtain Salonpas lidocaine patches. Please return to the emergency department if your symptoms change or worsen. Specifically develop abdominal pain, fever, chest pain, burning with urination, blood in your urine. Please follow with your primary care physician for further outpatient evaluation and management. Disposition Disposition: Home, Self Care
--- OUTSIDE RECORDS SUMMARY | 2023-10-19 23:43 | XMS RPT_ITS | CCD ---
Author Name Unknown Address [address] [place] [address] Organization [facility] Care Team Providers Care Butter Grader Name Role Phone Johanna Madison PA-C Primary Care Provider [phone] SARANYA STEARNS MD Attending Unavailable Johanna MADISON Primary Care Unavailable Johanna Madison PA-C Primary Care Provider [phone] Johanna MADISON Primary Care Unavailable Johanna MADISON Attending Unavailable MADISON, M NOAH Primary Care Unavailable SARANYA STEARNS MD Referring Unavailable MADISONJohanna Attending Unavailable MADISONJohanna Primary Care Unavailable MADISONJohanna GARCIA Attending Unavailable Johanna MADISON Primary Care Unavailable MADISONJohanna GARCIA Attending Unavailable Johanna MADISON Referring Unavailable TIGIST MARX Attending Unavailable Johanna MADISON Primary Care Unavailable TIGIST MARX Referring Unavailable MADISONJohanna Primary Care Unavailable TIGIST MARX Attending Unavailable TIGIST MARX Referring Unavailable MADISONJohanna Primary Care Unavailable MADISONJohanna GARCIA Primary Care Unavailable Johanna MADISON Attending Unavailable Johanna MADISON Referring Unavailable MADISON, M NOAH Primary Care Unavailable MADISON M NOAH Primary Care Unavailable MADISONJohanna Attending Unavailable ALIRIO RAMIREZ Attending Unavailable Johanna MADISON Primary Care Unavailable MADISON, M NOAH Primary Care Unavailable Johanna MADISON Referring Unavailable RUPINDER MCARTHUR MD Admitting Unavailable RUPINDER MCARTHUR MD Primary Care Unavailable RUPINDER MCARTHUR MD Attending Unavailable Johanna MADISON Consulting Unavailable Johanna MADISON Referring Unavailable PROVIDER, UNKNOWN Consulting Unavailable AYLA POTTER Primary Care Unavailable AYLA POTTER Attending Unavailable Johanna MADISON Consulting Unavailable AYLA POTTER Admitting Unavailable PROVIDER, UNKNOWN Consulting Unavailable Medications Completed/Discontinued Medications Medication Drug Class(es) Dates Sig (Normalized) Sig (Original) acetaminophen 325 mg / HYDROcodone bitartrate 5 mg oral tablet (2 sources) Opioid Agonist Start: 05-18-2021 End: 08-17-2022 take 1 tablet by mouth every six hours as needed HYDROcodone-acetami nophen (NORCO) 5-325 mg per tablet Indications: Closed fracture of one rib of right side with routine healing, subsequent encounter Take by mouth every 6 hours as needed. 0 05/18/2021 08/17/2022 Discontinued (Course of therapy completed) Problems Active Problems Problem Classification Problem Date Documented Date Episodic/Chronic Anxiety disorders (19 sources) Anxiety; Translations: [Anxiety disorder, unspecified] Onset: 09-08-2015 09-08-2015 Chronic Conditions associated with dizziness or vertigo (1 source) Dizziness and giddiness; Translations: [Dizziness] Onset: 03-28-2023 Episodic Disorders of lipid metabolism (1 source) Mixed hyperlipidemia; Translations: [Hyperlipidemia, mixed] Onset: 05-06-2023 Chronic Esophageal disorders (2 sources) Gastroesophageal reflux disease without esophagitis; Translations: [Gastro-esophageal reflux disease without esophagitis] Onset: 09-21-2022 Chronic Essential hypertension (1 source) Essential (primary) hypertension; Translations: [Hypertension, unspecified type] Onset: 03-28-2023 Chronic Mood disorders (5 sources) Recurrent major depressive episodes, moderate ; Translations: [Major depressive disorder, recurrent, moderate] Onset: 09-21-2022 Chronic Mood disorders (1 source) Mood disorders; Translations: [Anxiety and depression] Onset: 05-06-2023 Other circulatory disease (2 sources) Elevated blood-pressure reading without diagnosis of hypertension; Translations: [Elevated blood-pressure reading, without diagnosis of hypertension] 04-01-2023 Episodic Other hereditary and degenerative nervous system conditions (15 sources) Cerebellar ataxia; 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, unspecified] Onset: 06-23-2015 03-23-2021 Chronic Other hereditary and degenerative nervous system conditions (1 source) Coarse tremor; Translations: [Other specified forms of tremor] Chronic Other hereditary and degenerative nervous system conditions (1 source) Hereditary ataxia, unspecified; Translations: [Cerebellar ataxia (HCC)] Onset: 03-24-2021 Chronic Other hereditary and degenerative nervous system conditions (1 source) Other specified forms of tremor; Translations: [Coarse tremors] Onset: 09-21-2022 Chronic Other lower respiratory disease (1 source) Shortness of breath; Translations: [SOB (shortness of breath)] Onset: 03-28-2023 Episodic Other non-traumatic joint disorders (10 sources) Shoulder pain; Translations: [Pain in right shoulder] Onset: 09-26-2022 Episodic Residual codes; unclassified (15 sources) Obstructive sleep apnea syndrome; Translations: [Obstructive sleep apnea (adult) (pediatric)] Onset: 02-14-2016 02-14-2016 Chronic Residual codes; unclassified (1 source) Obstructive sleep apnea (adult) (pediatric); Translations: [MARIO (obstructive sleep apnea)] Onset: 02-14-2016 Chronic Substance-related disorders (14 sources) History of drug abuse; Translations: [Other psychoactive substance abuse, in remission] Onset: 09-08-2015 09-08-2015 Chronic Thyroid disorders (18 sources) Hypothyroidism; Translations: [Hypothyroidism, unspecified] Onset: 09-19-2015 09-19-2015 Chronic Past or Other Problems Problem Classification Problem Date Documented Date Episodic/Chronic Diabetes mellitus without complication (18 sources) Prediabetes; Translations: [Prediabetes] Onset: 09-19-2019 09-19-2019 Episodic Gastritis and duodenitis (15 sources) Gastritis; Translations: [Gastritis, unspecified, without bleeding] Onset: 03-18-2020 03-18-2020 Episodic Other and unspecified benign neoplasm (14 sources) History of polyp of colon; Translations: [Personal history of colonic polyps] Onset: 03-18-2020 03-18-2020 Episodic Other circulatory disease (1 source) Elevated blood-pressure reading, without diagnosis of hypertension; Translations: [Elevated BP without diagnosis of hypertension] Onset: 05-06-2023 Episodic Other nervous system disorders (14 sources) Impairment of balance; Translations: [Other abnormalities of gait and mobility] Onset: 06-20-2015 06-20-2015 Episodic Other nervous system disorders (14 sources) Ataxic gait; Translations: [Ataxic gait] Onset: 06-23-2015 06-23-2015 Episodic Other nervous system disorders (14 sources) Abnormal gait; Translations: [Unspecified abnormalities of gait and mobility] Onset: 09-08-2015 09-08-2015 Episodic Other non-traumatic joint disorders (6 sources) Disorder of shoulder; Translations: [Other specified joint disorders, right shoulder] Onset: 12-17-2022 Episodic Other non-traumatic joint disorders (5 sources) Pain in right shoulder; Translations: [Pain in joint, shoulder region] Onset: 09-26-2022 09-26-2022 Episodic Residual codes; unclassified (14 sources) Family history of alcoholism; Translations: [Family history of alcohol abuse and dependence] Onset: 09-08-2015 09-08-2015 Episodic Spondylosis; intervertebral disc disorders; other back problems (14 sources) Neck pain; Translations: [Cervicalgia] Onset: 05-15-2021 05-15-2021 Episodic Results Test Name Value Interpretation Reference Range Facil ity Vital Signs Date Time Vital Sign Value Performing Clinician Jake pal 06-26-2023 07:26-0500 Body weight 101.15 kg Alirioeloisa Ramirez DRESS MARKER.DURALUMIN METALWORKER Work Phone: [facility] 06-26-2023 07:26-0500 Diastolic blood pressure 90 mm[Hg] Alirio Ramirez DRESS MARKER.DURALUMIN METALWORKER Work Phone: [facility] 06-26-2023 07:26-0500 Heart rate 72 /min Alirio James DRESS MARKER.DURALUMIN METALWORKER Work Phone: [facility] 06-26-2023 07:26-0500 Respiratory rate 14 /min Alirio James DRESS MARKER.DURALUMIN METALWORKER Work Phone: [facility] 06-26-2023 07:26-0500 SaO2% (BldA) [Mass fraction] 98 % Aliriojose Ramirez DRESS MARKER.DURALUMIN METALWORKER Work Phone: [facility] 06-26-2023 07:26-0500 Systolic blood pressure 150 mm[Hg] Alirio Ramirez DRESS MARKER.DURALUMIN METALWORKER Work Phone: [facility] 04-01-2023 08:02-0400 Body weight 101.61 kg PHILLIP MARTIN-Sharee Work Phone: [facility] 04-01-2023 08:02-0400 Diastolic blood pressure 98 mm[Hg] NA Los PA-C Work Phone: [facility] 04-01-2023 08:02-0400 Heart rate 76 /min NA Madison PA-C Work Phone: [facility] 04-01-2023 08:02-0400 Respiratory rate 18 /min NA Madison PA-C Work Phone: [facility] 04-01-2023 08:02-0400 SaO2% (BldA) [Mass fraction] 97 % NA Madison PA-C Work Phone: [facility] 04-01-2023 08:02-0400 Systolic blood pressure 154 mm[Hg] NA Madison PA-C Work Phone: [facility] 10-26-2022 10:36-0400 Body weight 103.87 kg NA Madison PA-C Work Phone: [facility] 10-26-2022 10:36-0400 Diastolic blood pressure 66 mm[Hg] NA Madison PA-C Work Phone: [facility] 10-26-2022 10:36-0400 Heart rate 108 /min NA Madison PA-C Work Phone: [facility] 10-26-2022 10:36-0400 Respiratory rate 16 /min NA Madison PA-C Work Phone: [facility] 10-26-2022 10:36-0400 SaO2% (BldA) [Mass fraction] 98 % NA Madison PA-C Work Phone: [facility] 10-26-2022 10:36-0400 Systolic blood pressure 118 mm[Hg] NA Madison PA-C Work Phone: [facility] 09-21-2022 14:30-0500 Body weight 102.06 kg NA Madison PA-C Work Phone: [facility] 09-21-2022 14:30-0500 Diastolic blood pressure 78 mm[Hg] NA Madison PA-C Work Phone: [facility] 09-21-2022 14:30-0500 Heart rate 80 /min NA Madison PA-C Work Phone: [facility] 09-21-2022 14:30-0500 SaO2% (BldA) [Mass fraction] 98 % NA Madison PA-C Work Phone: [facility] 09-21-2022 14:30-0500 Systolic blood pressure 132 mm[Hg] NA Madison PA-C Work Phone: [facility] 08-17-2022 13:53-0500 Body weight 104.78 kg NA Madison PA-C Work Phone: [facility] 08-17-2022 13:53-0500 Diastolic blood pressure 80 mm[Hg] NA Madison PA-C Work Phone: [facility] 08-17-2022 13:53-0500 Heart rate 81 /min NA Madison PA-C Work Phone: [facility] 08-17-2022 13:53-0500 Respiratory rate 16 /min NA Madison PA-C Work Phone: [facility] 08-17-2022 13:53-0500 SaO2% (BldA) [Mass fraction] 99 % NA Madison PA-C Work Phone: [facility] 08-17-2022 13:53-0500 Systolic blood pressure 122 mm[Hg] NA Madison PA-C Work Phone: [facility] Encounters Encounter Date Encounter Type Care Provider Facility Start: 09-03-2023 End: 09-03-2023 [facility] Start: 08-02-2023 End: 08-02-2023 ambulatory Johanna MADISON Facility:[facility] Start: 07-20-2023 Alejandra Martinez MD Work Phone: [facility] Procedures Date Procedure Procedure Detail Performing Clinician Start: 06-24-2023 Lipid 1996 panel - S latoya or Plasma Alirio Ramirez DRESS MARKER.DURALUMIN METALWORKER Work Phone: Start: 02-09-2020 Colonoscopy NA Madison PA-C Work Phone: Start: 10-07-2019 Adult depression scr eening assessment PHILLIP Madison PA-C Work Phone: Plan of Treatment Date Care Activity Detail Author Start: 02-08-2030 Colonoscopy COLONOSCOPY [facility] Start: 02-08-2030 COLORECTAL CANCER SCREENING COLORECTAL CANCER SCREENING [facility] Start: 06-24-2028 Lipid 1996 panel - S latoya or Plasma Lipid Screening [facility] Start: 06-24-2026 Diabetes Screening Diabetes Screenin g [facility] Start: 04-29-2026 LIPID SCREEN LIPID SCREEN [facility] Start: 03-28-2026 DIABETES SCREEN DIABETES SCREEN [facility] Start: 09-18-2025 DIABETES SCREEN DIABETES SCREEN [facility] Start: 06-26-2024 Annual PCP Team Feed Management Advisor fiorella Disease Visit Annual PCP Team Chronic Disease Visit [facility] Start: 06-26-2024 Covid-19 Vaccine ( season) Covid-19 Vaccine () [facility] Immunizations Immunization Date Immunization Notes Care Provider Shy jameson 03-23-2021 COVID-19 vaccine (ANDREA) PHILLIP Madison PA-C Work Phone: [facility] 04-24-2017 influenza virus vacc ine, unspecified formulation Alirio Ramirez APRN.CNP Work Phone: [facility] Payers Date Payer Category Payer Unknown [employer] PPO OOS [id number] 2019-Present [phone] [address] PPO [id number] 2019 Unknown [employer] PPO OOS [id number] 2019-Present [phone] [place], [place] [id number] PPO [id number] 2019 Unknown [id number] 1965 Unknown [id number] 1965 Unknown [id number] Social History Date Type Detail Facility Start: 04-13-2015 End: 06-19-2022 Tobacco smoking status NHIS Ex-smoker [facility] End: 10-07-2015 History of tobacco use Current smoker [facility] End: 10-07-2015 History of tobacco use Cigarette Smoker [facility] Start: 04-13-2015 End: 12-17-2022 Cigarettes smoked current (pack per day) - Reported 0.15 [facility] Start: 04-13-2015 End: 06-19-2022 Tobacco use and exposure User of smokeless tobacco [facility] History of tobacco use Chews Tobacco [facility] Start: 09-07-2021 End: 06-26-2023 Alcohol intake Current non-drinker of alcohol (finding) [facility] Start: 10-07-2019 End: 06-19-2022 Tobacco Comment 37 years ON AND OFF [facility] Start: 1965 Sex Assigned At Male [facility] Start: 08-15-2022 History SDOH Alcohol Frequency 1 [facility] Start: 08-15-2022 History SDOH Alcohol Std Drinks 0 [facility] Start: 08-15-2022 History SDOH Social Connections Phone 5 [facility] Start: 08-15-2022 History SDOH Social Connections Get Together 2 [facility] Start: 08-15-2022 History SDOH Social Connections Shinto 3 [facility] Start: 08-15-2022 History SDOH Financial 4 [facility] Start: 08-15-2022 End: 12-17-2022 Social connection and isolation panel [facility] Do you belong to any clubs or organizations such as baptist groups, unions, fraternal or athletic groups, or school groups? Yes [facility] Are you now , , , , never or living with a partner? [facility] How often to you hav e a drink containing alcohol? Never [facility] How many standard dr inks containing alcohol do you have on a typical day? Patient does not drink [facility] How hard is it for y ou to pay for the very basics like food, housing, medical care, and heating Not very hard [facility] Do you feel stress - tense, restless, nervous, or anxious, or unable to sleep at night because your mind is troubled all the time - these days [OSQ] To some extent [facility] (I/We) worried wheth er (my/our) food would run out before (I/we) got money to buy more. Never true [facility] In the past 12 month s, was there a time when you were not able to pay the mortgage or rent on time? No [facility] Start: 05-30-2021 Gender identity Identifies as male gender (finding) [facility] Start: 05-30-2021 Sexual orientation Heterosexual (nidhi link) [facility] Clinical Notes 11-21-2021 to 08-02-2023 Telephone Encounter - Sky Ndiaye - 07/22/2023 1:32 PM Alirio Timmons APRN.CNP - 06/26/2023 7:30 AM ESTPatient InstructionsJohanna Madison PA-C - 04/01/2023 8:00 AM EDTPatient Instructions Note Date & Type Note Facility 08-02-2023 Note HNO ID: [id number] Author: Johanna Madison PA-C Service: ? Author Type: Physician Research Nurse Type: Progress Notes Filed: 08/02/2023 5:59 PM Note Text: 57 year old male with c/o patient is here for follow-up on blood pressure which was not immediately clear to me until patient identified that he had previously seen Shagufta Ramirez CNP for preoperative consultation. She cleared him for surgery but said that he should follow-up for blood pressure rechecks as his blood pressure is mildly elevated. Patient missed his appointment with me for blood pressure follow-up which had been recommended when held off on amlodipine prescribed to the emergency department for elevated blood pressure. I felt this was inappropriate since patient was not in danger in the ER department. This information was not readily available to me as the visit was placed as a preop consult. [place] Reading through the consult I realized that the patient did not need my review. Patient again raises subject of ataxia, possible causes, symptoms relating back to his days when he was using drugs and alcohol severely. This has been a constant problem since that time. And we have discussed this is the likely source of his ataxia. It is not significantly changed. HISTORIES FAMILY HISTORY Problem Relation Age of Onset Heart Mother Kidney Disease Mother COPD Mother Hypertension Mother Heart Sister Cancer Father at 49 yo Lung Hypertension Sister Ataxia Child Drug abuse Child PAST MEDICAL HISTORY Diagnosis Date Anxiety Ataxia 2019 Hypothyroid Obstructive sleep apnea Substance abuse (HCC) PAST SURGICAL HISTORY Procedure Laterality Date CELESTONE 3MG INJ 10/29/2022 celestone 6mg IA right shoulder COLONOSCOPY 02/09/2020 EGD 02/09/2020 Social History Tobacco Use Smoking status: Former Packs/day: 0.15 Years: 37.00 Additional pack years: 0.00 Total pack years: 5.55 Types: Cigarettes Quit date: 10/07/2015 Years since quittin.8 Smokeless tobacco: Current Types: Chew Tobacco comments: 37 years ON AND OFF Substance Use Topics Alcohol use: No Drug use: Yes Comment: 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 02/09/2014 last use. Pt states relapsing 4 months ago ACTIVE PROBLEM LIST Imbalance Cerebellar Ataxia (Hcc) Ataxic Gait Anxiety Family History of Alcohol Abuse and Dependence History of Drug Abuse (Hcc) Abnormality of Gait Hypothyroid Mario (Obstructive Sleep Apnea) Prediabetes History of Colonic Polyps Gastritis Cervicalgia Acute Pain of Right Shoulder Impingement of Right Shoulder Current Outpatient Medications Medication Sig Dispense Refill traMADol (ULTRAM) 50 mg tablet Take 50 mg by mouth every 6 hours as needed. levothyroxine (SYNTHROID) 50 mcg tablet Take 1 tablet by mouth once daily. Take on empty stomach. For Thyroid. 90 tablet 0 buPROPion XL (WELLBUTRIN XL) 150 mg 24 hr tablet Take 1 tablet by mouth once daily. 90 tablet 3 metFORMIN (GLUCOPHAGE) 1,000 mg tablet Take 1 tablet by mouth daily with breakfast. 90 tablet 5 amLODIPine (NORVASC) 5 mg tablet Take 1 tablet by mouth once daily. (Patient not taking: Reported on 08/02/2023) 30 tablet 0 No current facility-administered medications for this visit. Prostate Cancer Screening Discussion due on 04/24/2022 EXAM: BP 142/88 Pulse 79 Resp 16 Wt 100.2 kg (221 lb) BMI 29.97 kg/m? Pleasant well-appearing adult male here with his partner. In no acute distress. Alert and oriented all spheres. Normal affect and cognition. Speech normal. No deficits to learning or comprehension. Skin warm, dry, pink to lips and nailbeds. Normal turgor. Respirations regular and unlabored. Chest is normal shape. Lungs are clear to all mazariegos with good air exchange through out. HRRR without murmur or gallop. No lifts, heaves, or rubs. Extrem: no clubbing or cyanosis. Edema: none. Extremities are warm and pink with prompt capillary refill. ASSESSMENT/PLAN: 1. Preoperative clearance - ICD9: V72.84, ICD10: Z01.818 Patient's blood pressure is reasonable for proceeding with surgery, clearance is provided. Forms were signed and faxed to was to Ortho. Follow-up after surgery and will follow blood pressure, possibly start medication if remains in this range. Johanna Madison PA-C Some of this note may have been copied and pasted for the purpose of history context and comparison and has been adjusted for changes in prior data. Johanna Madison PA-C [facility] 07-22-2023 Miscellaneous Notes Patient phones requesting refills as follows: Requested Prescriptions Pending Prescriptions Disp Refills levothyroxine (SYNTHROID) 50 mcg tablet 90 tablet 0 Sig: Take 1 tablet by mouth once daily. Take on empty stomach. For Thyroid. MIKAELA 06/26/23 NOV no upcoming appt *Last rx written 03/01/23 #90 with 0 refills Last labs 09/18/22 Please review and advise. Sky Ndiaye documented in this encounter [facility] 06-26-2023 Note HNO ID: [id number] Author: Alirio Ramirez APRN.LEMUEL Service: ? Author Type: Nurse Practitioner Type: Progress Notes Filed: 06/26/2023 8:08 AM Note Text: Chief Complaint Patient presents with: pre op: Pt states completed labs on Saturday HPI Tu Scales is a 57 year old male who presents here today for Above Complaints. Andrade is an established patient of VERONICA Hartmann. He is a new patient to me today. Concerns today.. Pre-op clearance --- R shoulder arthroscopy with rotator cuff repair. Surgery date TBD. Has appointment with surgeon on 07/03 to schedule. No prior complications with anaesthesia. Lab work completed on Saturday. Fell about 3 weeks that lead to rotator cuff detachment. DM--- Current regimen: metformin 1000 mg daily. Tolerating well. hgA1c from Saturday is stable at 6.0 Reports not taking metformin x 1 week because he was wondering since he lost weight if he could come off of this. Lost about 20 lbs per pt report. HTN/BP --- No current BP medication regimen. BP was elevated at hospital, ordered daily amlodipine. Pt never started and repeat BP at follow-up appointment was WNL. Was told to hold off on amlodipine. He does not check BP at home. Reports in pain in shoulder due to injury and feels that is why it is elevated today. Been up since 2am in pain in shoulder. He denies chest pain, shortness of breath, palpitations, dizziness, leg edema, headaches, or vision changes. Last 14 Encounter BP Readings: Date: BP: 04/01/2023 154/98 03/28/2023 147/89 12/17/2022 120/72 10/26/2022 118/66 09/21/2022 132/78 08/17/2022 122/80 06/19/2022 130/72 09/07/2021 112/62 05/19/2021 122/88 05/15/2021 114/82 03/23/2021 128/72 01/10/2021 142/78 09/20/2020 132/82 03/18/2020 112/52 Mood-- Stable. Well controlled. No other concerns or complaints. Past medical history, appointments, medications, allergies reviewed. Previous Medical History PAST MEDICAL HISTORY Diagnosis Date Anxiety Ataxia 2019 Hypothyroid Obstructive sleep apnea Substance abuse (HCC) Previous Surgical History PAST SURGICAL HISTORY Procedure Laterality Date CELESTONE 3MG INJ 10/29/2022 celestone 6mg IA right shoulder COLONOSCOPY 02/09/2020 EGD 02/09/2020 Family History FAMILY HISTORY Problem Relation Age of Onset Heart Mother Kidney Disease Mother COPD Mother Hypertension Mother Heart Sister Cancer Father at 49 yo Lung Hypertension Sister Ataxia Child Drug abuse Child Patient Allergies ALLERGIES No Known Allergies Current Medications Current Outpatient Medications on File Prior to Visit Medication Sig levothyroxine (SYNTHROID) 50 mcg tablet Take 1 tablet by mouth once daily. Take on empty stomach. For Thyroid. buPROPion XL (WELLBUTRIN XL) 150 mg 24 hr tablet Take 1 tablet by mouth once daily. metFORMIN (GLUCOPHAGE) 1,000 mg tablet Take 1 tablet by mouth daily with breakfast. amLODIPine (NORVASC) 5 mg tablet Take 1 tablet by mouth once daily. No current facility-administered medications on file prior to visit. 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 02/09/2014 last use. Pt states relapsing 4 months ago REVIEW OF SYSTEMS: as above Reviewed relevant PMHx, PSHx, Social Hx, current medications and allergies. Review of Symptoms REVIEW OF SYSTEMS See HPI. EXAM: BP 150/90 (BP Site: Left Arm, BP Position: Sitting, BP Cuff Size: Large Adult) Pulse 72 Resp 14 Wt 101.2 kg (223 lb) SpO2 98% BMI 30.24 kg/m? General Appearance: Well appearing, alert, in no acute distress, well-hydrated, well nourished.. Skin: Skin color, texture, turgor normal, no suspicious rashes or lesions. Head: Normocephalic, no masses, lesions, tenderness or abnormalities. Lungs: Lungs clear to auscultation. No wheezing, rhonchi, rales.. Heart: RRR without murmur, gallop, or rubs. No ectopy. Neurologic: Gait normal. Reflexes normal and symmetric. Sensation grossly intact.. Health Maintenance List Prostate Cancer Screening Discussion due on 04/24/2022 Depression Assessment Never done DTaP,Tdap,Td Vaccine(1 - Tdap) due on 12/18/2023 Hepatitis B Vaccine(1 of 3 - 3-dose series) due on 12/18/2023 Shingrix Vaccine(1 of 2) due on 12/18/2023 Influenza Vaccine(1) due on 02/09/2024 Covid-19 Vaccine(2 - 2023-24 season) due on 06/26/2024 Annual PCP Team Chronic Disease Visit due on 04/01/2024 Diabetes Screening due on 06/24/2026 Lipid Screening due on 06/24/2028 Colorectal Cancer Screening due on 02/08/2030 Hepatitis C Screening Completed HIV Screening C (more content not included)... [facility] 06-26-2023 History of Presen t illness Narrative Chief Complaint Patient presents with: pre op: Pt states completed labs on Saturday HPI Tu Scales is a 57 year old male who presents here today for Above Complaints. Andrade is an established patient of VERONICA Hartmann. He is a new patient to me today. Concerns today.. Pre-op clearance --- R shoulder arthroscopy with rotator cuff repair. Surgery date TBD. Has appointment with surgeon on 07/03 to schedule. No prior complications with anaesthesia. Lab work completed on Saturday. Fell about 3 weeks that lead to rotator cuff detachment. DM--- Current regimen: metformin 1000 mg daily. Tolerating well. hgA1c from Saturday is stable at 6.0 Reports not taking metformin x 1 week because he was wondering since he lost weight if he could come off of this. Lost about 20 lbs per pt report. HTN/BP --- No current BP medication regimen. BP was elevated at hospital, ordered daily amlodipine. Pt never started and repeat BP at follow-up appointment was WNL. Was told to hold off on amlodipine. He does not check BP at home. Reports in pain in shoulder due to injury and feels that is why it is elevated today. Been up since 2am in pain in shoulder. He denies chest pain, shortness of breath, palpitations, dizziness, leg edema, headaches, or vision changes. Last 14 Encounter BP Readings: Date: BP: 04/01/2023 154/98 03/28/2023 147/89 12/17/2022 120/72 10/26/2022 118/66 09/21/2022 132/78 08/17/2022 122/80 06/19/2022 130/72 09/07/2021 112/62 05/19/2021 122/88 05/15/2021 114/82 03/23/2021 128/72 01/10/2021 142/78 09/20/2020 132/82 03/18/2020 112/52 Mood-- Stable. Well controlled. No other concerns or complaints. Past medical history, appointments, medications, allergies reviewed. Previous Medical History PAST MEDICAL HISTORY Diagnosis Date Anxiety Ataxia 2019 Hypothyroid Obstructive sleep apnea Substance abuse (HCC) Previous Surgical History PAST SURGICAL HISTORY Procedure Laterality Date CELESTONE 3MG INJ 10/29/2022 celestone 6mg IA right shoulder COLONOSCOPY 02/09/2020 EGD 02/09/2020 Family History FAMILY HISTORY Problem Relation Age of Onset Heart Mother Kidney Disease Mother COPD Mother Hypertension Mother Heart Sister Cancer Father at 49 yo Lung Hypertension Sister Ataxia Child Drug abuse Child Patient Allergies ALLERGIES No Known Allergies Current Medications Current Outpatient Medications on File Prior to Visit Medication Sig levothyroxine (SYNTHROID) 50 mcg tablet Take 1 tablet by mouth once daily. Take on empty stomach. For Thyroid. buPROPion XL (WELLBUTRIN XL) 150 mg 24 hr tablet Take 1 tablet by mouth once daily. metFORMIN (GLUCOPHAGE) 1,000 mg tablet Take 1 tablet by mouth daily with breakfast. amLODIPine (NORVASC) 5 mg tablet Take 1 tablet by mouth once daily. No current facility-administered medications on file prior to visit. 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 02/09/2014 last use. Pt states relapsing 4 months ago REVIEW OF SYSTEMS: as above Reviewed relevant PMHx, PSHx, Social Hx, current medications and allergies. Review of Symptoms REVIEW OF SYSTEMS See HPI. EXAM: BP 150/90 (BP Site: Left Arm, BP Position: Sitting, BP Cuff Size: Large Adult) Pulse 72 Resp 14 Wt 101.2 kg (223 lb) SpO2 98% BMI 30.24 kg/m General Appearance: Well appearing, alert, in no acute distress, well-hydrated, well nourished.. Skin: Skin color, texture, turgor normal, no suspicious rashes or lesions. Head: Normocephalic, no masses, lesions, tenderness or abnormalities. Lungs: Lungs clear to auscultation. No wheezing, rhonchi, rales.. Heart: RRR without murmur, gallop, or rubs. No ectopy. Neurologic: Gait normal. Reflexes normal and symmetric. Sensation grossly intact.. Health Maintenance List Prostate Cancer Screening Discussion due on 04/24/2022 Depression Assessment Never done DTaP,Tdap,Td Vaccine(1 - Tdap) due on 12/18/2023 Hepatitis B Vaccine(1 of 3 - 3-dose series) due on 12/18/2023 Shingrix Vaccine(1 of 2) due on 12/18/2023 Influenza Vaccine(1) due on 02/09/2024 Covid-19 Vaccine(2 - season) due on 06/26/2024 Annual PCP Team Chronic Disease Visit due on 04/01/2024 Diabetes Screening due on 06/24/2026 Lipid Screening due on 06/24/2028 Colorectal Cancer Screening due on 02/08/2030 Hepatitis C Screening Completed HIV Screening Completed ASSESSMENT/PLAN: 1. Preoperative clearance - ICD9: V72.84, ICD10: Z01.818 (primary diagnosis) Pending clearance based on repeat BP check with PCP VERONICA Hartmann on 07/08/23. Otherwise, lab work, physical exam, and EKG WNL for clearance. 2. Elevated BP without diagnosis of hypertension - ICD9: 796.2, ICD10: R03.0 Possible cause d/t pain. RTO on 07/08/23 as scheduled for BP check. - Encouraged dietary sodium restriction/DASH diet - Recommended regular aerobic exercise. - Recommend home blood pressure monitoring, to bring results in on next visit - Discussed need and benefit for weight loss. - Goal of BP <130/80 3. Moderate episode of recurrent major depressive disorder (HCC) - ICD9: 296.32, ICD10: F33.1 Stable. Well controlled on current regimen. 4. Prediabetes - ICD9: 790.29, ICD10: R73.03 Stable. Encouraged pt to continue taking prescribed metformin regimen at this time. Pt agreeable. RTO as scheduled in 1.5 weeks. Prescription instructions reviewed with patient as applicable. Potential red flag symptoms discussed with the patient. Reviewed appropriate action plan to take if red flag symptoms occur. Patient agreeable to treatment plan. Alirio Lennon APRN.[employer] [id number] [place] [address] documented in this encounter [facility] 04-01-2023 Note HNO ID: [id number] Author: Johanna Madison PA-C Service: ? Author Type: Physician Research Nurse Type: Progress Notes Filed: 04/01/2023 9:33 AM Note Text: 57 year old male with c/o here for followup 03/28/2023 present to [facility] ED with c/o from records: Patient with history of acid reflux, ataxia, diabetes presents for evaluation of dizziness shortness of breath. Patient states that the symptoms started on Saturday. He states that he had an episode of diaphoresis associated with shortness of breath and chest pain. He states he was very dizzy and was unable to walk at that time. He felt he was going to pass out. His was able to help him inside cooled him down and he felt much better. He states that today he was at [place] [employer] when he started to have similar symptoms. He states that he felt like he was going to vomit and that caused him to have some chest pressure. He states that he feels dizzy and has a hoarse voice. He admits to some difficulty breathing. He states that he just does not feel right. He denies any hosea chest pain, vomiting, cough or congestion. Denies any known sick contacts. Denies any new weakness, numbness or tingling. Exam: VS [id number].oF-97% RA-235 lbs-6' PE benign. Data: Troponins WNL. No significant abnormals CBC, CMP, lipase, flu/Coivd CXR WNL EKG NST vr83, normal axes and intervals Given IVF and to f/u here. Following visit not too bad Sometimes with activity feels SOB but states he's really out of shape. Notes Saturday prior was dizzy and sweaty when he got home, heath weak. Note last Saturday at [facility] face was all red, didn't feel good, went home early. States had right upper chest pain which has been ongoing with his shoulder issues. Shoulder stiff, hurts at night with raising shoulder overhead. Using Icy Hot, doing therapy exercises. Thinks a lot was related to anxiety. Identifies taking a sigh as SOB. No respiratory labor. HTN: Current meds: Amlodipine 5mg daily: hasn't started, coming in mail Patient is compliant with meds n/a Monitors bp at home: No. If yes, readings: Denies side effects: n/a. Chest pain: Yes. As above Dyspnea: No. Edema: No. Palpitations: No. Syncope: No. Headache: No. Dizziness: No. Last 3 Encounter BP Readings: Date: BP: 03/28/2023 147/89 12/17/2022 120/72 10/26/2022 118/66 Last 2 Encounter Wt Readings: Date: Wt: 03/28/2023 106.6 kg (235 lb) 12/17/2022 103.9 kg (229 lb) . HISTORIES FAMILY HISTORY Problem Relation Age of Onset Heart Mother Kidney Disease Mother COPD Mother Hypertension Mother Heart Sister Cancer Father at 49 yo Lung Hypertension Sister Ataxia Child Drug abuse Child PAST MEDICAL HISTORY Diagnosis Date Anxiety Ataxia 2019 Hypothyroid Obstructive sleep apnea Substance abuse (HCC) PAST SURGICAL HISTORY Procedure Laterality Date CELESTONE 3MG INJ 10/29/2022 celestone 6mg IA right shoulder COLONOSCOPY 02/09/2020 EGD 02/09/2020 Social History Tobacco Use Smoking status: Former Packs/day: 0.15 Years: 37.00 Additional pack years: 0.00 Total pack years: 5.55 Types: Cigarettes Quit date: 10/07/2015 Years since quittin.4 Smokeless tobacco: Current Types: Chew Tobacco comments: 37 years ON AND OFF Substance Use Topics Alcohol use: No Drug use: Yes Comment: 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 02/09/2014 last use. Pt states relapsing 4 months ago ACTIVE PROBLEM LIST Imbalance Cerebellar Ataxia (Hcc) Ataxic Gait Anxiety Family History of Alcohol Abuse and Dependence History of Drug Abuse (Hcc) Abnormality of Gait Hypothyroid Mario (Obstructive Sleep Apnea) Prediabetes History of Colonic Polyps Gastritis Cervicalgia Acute Pain of Right Shoulder Impingement of Right Shoulder Current Outpatient Medications Medication Sig Dispense Refill amLODIPine (NORVASC) 5 mg tablet Take 1 tablet by mouth once daily. 30 tablet 0 levothyroxine (SYNTHROID) 50 mcg tablet Take 1 tablet by mouth once daily. Take on empty stomach. For Thyroid. 90 tablet 0 buPROPion XL (WELLBUTRIN XL) 150 mg 24 hr tablet Take 1 tablet by mouth once daily. 90 tablet 3 metFORMIN (GLUCOPHAGE) 1,000 mg tablet Take 1 tablet by mouth daily with breakfast. 90 tablet 5 cyclobenzaprine (FLEXERIL) 10 mg tablet Take 1 tablet by mouth three times daily as needed for muscle spasm. (Patient not taking: Reported on 12/17/2022) 30 tablet 2 oxaprozin (DAYPRO) 600 mg tablet Take 2 tablets by mouth once daily. (Patient not taking: Reported on 12/17/2022) 60 tablet 2 omeprazole (PRILOSEC) 40 mg capsule Take 1 capsule by mouth once daily as needed. (Patient not taking: Reported on 12/17/2022) 30 capsule 2 No current facility-administered medications for this visit. PROSTATE CANCER SCREENING DISCUSSION due on 04/24/2022 DEPRESSION ASSESSMENT Never done EXAM: BP 154/98 Pulse 76 Resp 18 W (more content not included)... [facility] 04-01-2023 Instructions Johanna Madison PA-C - 04/01/2023 8:23 AM EDT Hypertension What causes hypertension? While the causes of hypertension in most people remain unclear, a variety of conditions and states- such as little or no exercise, poor diet, obesity, older age, and genetics- can lead to hypertension. How is blood pressure measured? Your doctor or health care provider can check your blood pressure during a physical examination. ( You can also check your own blood pressure at home.) blood pressure is measured with a device known as a sphygmomanometer, which consists of a stethoscope, arm cuff, dial pump, and valve. ( A digital blood pressure monitor provides an electronic blood pressure reading') The blood pressure reading is measured in millimeters of mercury (mm Hg) and is written as systolic pressure ( the higher pressure when the heart is sharad) over diastolic pressure ( the lower pressure when the heart is relaxed) (e.g., 120/80 mm Hg. or 120 over 80 ). What is a normal blood pressure? The Join National Committee on Prevention, Detection, Evaluation, and Treatment of High Blood Pressure has classified blood pressure measurements into several categories: - Normal blood pressure less than 120/80 mmHg - Pre-Hypertension 120-139/80-89 mmHg - Hypertension greater than 140/90 mmHg What health problems are associated with hypertension? Several potentially serious health conditions are linked to hypertension: - Atherosclerosis: This is a disease of the arteries, caused by a build up of plaque, or fatty material, on the inside romero of the blood vessels. Hypertension contributes to this build up by putting added stress and force on the artery romero. - Heart Disease: This includes heart failure (the heart can't adequately pump blood), ischemic heart disease ( the heart tissue doesn't get enough blood), and hypertensive hypertrophic cardiomyopathy (enlarged heart). - Kidney disease: Hypertension damages the blood vessels and filters in the kidneys, so that the kidneys cannot excrete waste products. - Stroke: Hypertension can lead to stroke, either by contributing to the process of atherosclerosis (which can lead to blockages and /or clots), or by weakening the blood vessel wall and causing it to balloon and burst. - Eye disease: Hypertension damages the very small blood vessels in the retin. If I have hypertension, how can I treat it? Hypertension treatment usually involves changes in lifestyle at first, and, if necessary, drug therapy. Lifestyle changes include: - Losing weight - Quitting smoking - Eating a healthy diet - Reducing the amount of salt in your diet - Regular aerobic exercise (such as brisk walking) - Limiting alcohol Hypertension medicines include angiotension-converting enzyme (ROS) inhibitors, angiotensin receptor blockers, diuretics, beta blockers and calcium channel blockers. What type of diet should I follow if I have hypertension? A healthy diet, such as the DASH (Dietary Approaches to Stop Hypertension) diet, can go a long way toward lowering blood pressure. The DASH diet calls for a certain number of daily servings from various food groups, including fruits, vegetables, and whole grains. The following steps can also help: - Eating more fruits, vegetables, and low-fat dairy foods - Eating less foods, that are high in saturated fat and cholesterol, such as fried foods - Eating more whole grains products, fish, poultry and nuts - Eating foods that are high in magnesium, potassium, and calcium THE DASH DIFFERENCE High blood pressure affects 50 million Americans and is one of the leading causes or heart diseased and stroke. The eating plan shown below, from the Dietary Approaches to Stop Hypertension (DASH) study, is good news for those affected by or at risk for high blood pressure. As reported in the [place] Journal of Medicine, the DASH diet, which is low in fat and rich in low-fat milk, cheese and yogurt, fruits and vegetables, lowered blood pressure in individuals with both normal and elevated blood pressure. The use of foods lower in sodium made a slight improvement in blood pressure beyond what occurred with the low-fat dairy products, fruits and vegetables. The study was based on a 2000 calorie diet and contained the number of servings from each of the food groups shown in the chart below. For many people following the DASH eating plan can be an important and easy step in preventing or managing high blood pressure. The DASH Eating Style FOOD GROUP DAILY SERVINGS 1 SERVING EQUALS Milk and Dairy 2-3 8 oz low-fat milk 1 cup low-fat 1 oz low-fat cheese Fruits 4-5 1 medium fruit cup dried fruit cup frozen or canned fruit 6 oz fruit juice Vegetables 4-5 1 cup raw leafy vegetables cup cooked vegetables 6 oz vegetable juice Grain 7-8 1 slice bread cup dry or hot cereal cup cooked rice or pasta Meat, fish, Poultry 2 or less 3 oz cooked meat, poultry, or fish Nuts, Seeds, Dried Beans 4-5 per week 1/3 cup nuts 2 tbsp seeds cup cooked dried beans Sample DASH Menu Breakfast 1 cup corn flakes (with 1 tsp sugar) 8 oz low-fat milk 1 banana 1 slice whole wheat toast 1 tbsp jelly grapefruit Lunch 2 oz sliced turkey 1 kelle bread 1 tbsp low-fat mayonnaise cup fruit cocktail in light syrup Raw vegetable medley with: 3-4 sticks of each carrot and celery 2 radishes 2 loose leaf lettuce leaves Snack cup dried apricots cup mini pretzels 1/3 cup mixed nuts 1 cup flavored low-fat yogurt Dinner 3 oz grilled lean beef 1 cup scallion rice 1 cup steamed broccoli 8 oz low-fat chocolate milk Spinach salad with cup raw spinach 2 pandey tomatoes 2 cucumber slices 10 Ways to DASH Up Your Dining 1.) Re-think your drink! Make low-fat milk your beverage of choice: order it when dining out. 2.) Pizza, Pizza, Pizza! Combine a pre-made pizza crust with pizza sauce, shredded low-fat mozzarella and lots of vegetable toppings - fresh tomatoes, zucchini, spinach, carrot curls, cauliflower, broccoli and artichoke hearts - for a totally awesome creation. 3.) Start Your Day with whole grain cereal and low-fat milk. 4.) Make it with Milk! Use low-fat milk in place of water when cooking, especially with oatmeal, boxed rice and pasta dishes 5.) For That Snack Attack: Serve cereal with low-fat milk and fresh fruit. For a tangy twist, layer flavored low-fat yogurt with cereal to create yogurt ae. 6.) Make Super Soup! Prepare soup with low-fat milk instead of water. Add fresh, canned or frozen vegetables to prepared soups. 7.) Shake em Up! Create director surface transportation drinks. Start with a cup of low-fat milk, add frozen fruit chunks and flavoring to make your own smoothie drink. 8.) Creat a Baked Potato Bar! Serve baked potatoes with a variety of toppings like low-fat cheese, chili, refried beans, salsa or broccoli. Add them up - one meal could contain three or four vegetable servings! 9.) Encourage Big Dippers! Make a fruit dip by sprinkling cinnamon into vanilla low-fat yogurt. For a quick vegetable dip, add ranch seasoning or chopped chives to plain low-fat yogurt. 10.) Say Cheese! Top Steamed vegetables with shredded low-fat cheese. documented in this encounter [facility] 04-01-2023 History of Presen t illness Narrative 57 year old male with c/o here for followup 03/28/2023 present to [facility] ED with c/o from records: Patient with history of acid reflux, ataxia, diabetes presents for evaluation of dizziness shortness of breath. Patient states that the symptoms started on Saturday. He states that he had an episode of diaphoresis associated with shortness of breath and chest pain. He states he was very dizzy and was unable to walk at that time. He felt he was going to pass out. His was able to help him inside cooled him down and he felt much better. He states that today he was [place] [employer] when he started to have similar symptoms. He states that he felt like he was going to vomit and that caused him to have some chest pressure. He states that he feels dizzy and has a hoarse voice. He admits to some difficulty breathing. He states that he just does not feel right. He denies any hosea chest pain, vomiting, cough or congestion. Denies any known sick contacts. Denies any new weakness, numbness or tingling. Exam: VS [id number].oF-97% RA-235 lbs-6' PE benign. Data: Troponins WNL. No significant abnormals CBC, CMP, lipase, flu/Coivd CXR WNL EKG NST vr83, normal axes and intervals Given IVF and to f/u here. Following visit not too bad Sometimes with activity feels SOB but states he's really out of shape. Notes Saturday prior was dizzy and sweaty when he got home, heath weak. Note last Saturday at [facility] face was all red, didn't feel good, went home early. States had right upper chest pain which has been ongoing with his shoulder issues. Shoulder stiff, hurts at night with raising shoulder overhead. Using Icy Hot, doing therapy exercises. Thinks a lot was related to anxiety. Identifies taking a sigh as SOB. No respiratory labor. HTN: Current meds: Amlodipine 5mg daily: hasn't started, coming in mail Patient is compliant with meds n/a Monitors bp at home: No. If yes, readings: Denies side effects: n/a. Chest pain: Yes. As above Dyspnea: No. Edema: No. Palpitations: No. Syncope: No. Headache: No. Dizziness: No. Last 3 Encounter BP Readings: Date: BP: 03/28/2023 147/89 12/17/2022 120/72 10/26/2022 118/66 Last 2 Encounter Wt Readings: Date: Wt: 03/28/2023 106.6 kg (235 lb) 12/17/2022 103.9 kg (229 lb) . HISTORIES FAMILY HISTORY Problem Relation Age of Onset Heart Mother Kidney Disease Mother COPD Mother Hypertension Mother Heart Sister Cancer Father at 49 yo Lung Hypertension Sister Ataxia Child Drug abuse Child PAST MEDICAL HISTORY Diagnosis Date Anxiety Ataxia 2019 Hypothyroid Obstructive sleep apnea Substance abuse (HCC) PAST SURGICAL HISTORY Procedure Laterality Date CELESTONE 3MG INJ 10/29/2022 celestone 6mg IA right shoulder COLONOSCOPY 02/09/2020 EGD 02/09/2020 Social History Tobacco Use Smoking status: Former Packs/day: 0.15 Years: 37.00 Additional pack years: 0.00 Total pack years: 5.55 Types: Cigarettes Quit date: 10/07/2015 Years since quittin.4 Smokeless tobacco: Current Types: Chew Tobacco comments: 37 years ON AND OFF Substance Use Topics Alcohol use: No Drug use: Yes Comment: 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 02/09/2014 last use. Pt states relapsing 4 months ago ACTIVE PROBLEM LIST Imbalance Cerebellar Ataxia (Hcc) Ataxic Gait Anxiety Family History of Alcohol Abuse and Dependence History of Drug Abuse (Hcc) Abnormality of Gait Hypothyroid Mario (Obstructive Sleep Apnea) Prediabetes History of Colonic Polyps Gastritis Cervicalgia Acute Pain of Right Shoulder Impingement of Right Shoulder Current Outpatient Medications Medication Sig Dispense Refill amLODIPine (NORVASC) 5 mg tablet Take 1 tablet by mouth once daily. 30 tablet 0 levothyroxine (SYNTHROID) 50 mcg tablet Take 1 tablet by mouth once daily. Take on empty stomach. For Thyroid. 90 tablet 0 buPROPion XL (WELLBUTRIN XL) 150 mg 24 hr tablet Take 1 tablet by mouth once daily. 90 tablet 3 metFORMIN (GLUCOPHAGE) 1,000 mg tablet Take 1 tablet by mouth daily with breakfast. 90 tablet 5 cyclobenzaprine (FLEXERIL) 10 mg tablet Take 1 tablet by mouth three times daily as needed for muscle spasm. (Patient not taking: Reported on 12/17/2022) 30 tablet 2 oxaprozin (DAYPRO) 600 mg tablet Take 2 tablets by mouth once daily. (Patient not taking: Reported on 12/17/2022) 60 tablet 2 omeprazole (PRILOSEC) 40 mg capsule Take 1 capsule by mouth once daily as needed. (Patient not taking: Reported on 12/17/2022) 30 capsule 2 No current facility-administered medications for this visit. PROSTATE CANCER SCREENING DISCUSSION due on 04/24/2022 DEPRESSION ASSESSMENT Never done EXAM: BP 154/98 Pulse 76 Resp 18 Wt 101.6 kg (224 lb) SpO2 97% BMI 30.38 kg/m Last 14 BP Last 14 Encounter BP Readings: Date: BP: 04/01/2023 154/98 03/28/2023 147/89 12/17/2022 120/72 10/26/2022 118/66 09/21/2022 132/78 08/17/2022 122/80 06/19/2022 130/72 09/07/2021 112/62 05/19/2021 122/88 05/15/2021 114/82 03/23/2021 128/72 01/10/2021 142/78 09/20/2020 132/82 03/18/2020 112/52 Pleasant adult man in no acute distress. Alert and oriented all spheres. Normal affect and cognition. Speech normal. No deficits to learning or comprehension. Skin warm, dry, pink to lips and nailbeds. Normal turgor. Respirations regular and unlabored. HEENT: NCAT. No scleral icterus or conjunctival injection. TM's clear. Nose and oropharynx free from injection or lesion. Oral membranes moist and pink. No cervical lymph nodes. Thyroid non-tender, no masses, or enlargement. Carotids pulses 2+/4+ without bruits. No JVD with HOB at 30 degrees. Extrem: no clubbing or cyanosis. Edema: none. Extremities are warm and pink with prompt capillary refill. Pain with raising right shoulder to 150-160 degrees abduction. ASSESSMENT/PLAN: 1. Elevated BP without diagnosis of hypertension - ICD9: 796.2, ICD10: R03.0 (primary diagnosis) - Encouraged dietary sodium restriction/DASH diet - Recommended regular aerobic exercise. - Recommend home blood pressure monitoring, to bring results in on next visit - Follow up in 1 month for BP recheck. - Goal of BP <130/80 - Hold off on amlodipine 2. Anxiety about health - ICD9: 300.09, ICD10: F41.8 Recognizes this as a component. Johanna Madison PA-C documented in this encounter [facility] 03-28-2023 Miscellaneous Notes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 T-scores: mean of general population = 50. 5 points is clinically meaningfully difference Percentiles provide an indication of how the patient's score ranks in relation to the general population. Higher percentile rankings indicate better function/quality of life. 50th percentile is the average of the general population and indicates half of respondents had a worse score. OBJECTIVE MEASURES WITH LEVEL OF FUNCTION: Shoulder Observations R Shoulder Palpation Tenderness Comments: infraspinatus UE AROM R UE AROM: Min limitations in flexion, abduction, and functional ER, no limitation in functional IR UE and Cervical Strength R Shoulder Flexion: 4/5 R Shoulder Abduction (C5): 4/5 R Shoulder Internal Rotation: 5/5 R Shoulder External Rotation: 3+/5 Special Tests - Shoulder Shoulder Special Tests: Comments Empty Can: Right Negative Shoulder Special Tests Comments: ER Lag test: Right positive TREATMENT: Therapeutic Exercise: 1: Shoulder pulleys 3x20 into tolerated range 2: *Wand ER 3x20 (also doorway PROM ER strethc for HEP) 3: *Wall slides 3x10 4: *Shoulder pendulums 3x20 5: Objective measures obtained Skilled Intervention: Patient was educated in proper exercise technique and purpose for exercises. Skilled judgment was provided in selection of appropriate interventions. Provided written instruction for home exercise program to facilitate proper performance and compliance. Correct performance of therapeutic exercises was facilitated with verbal, visual, and tactile cuing. Manual Therapy: 1: STM and TrPr to R infraspinatus with push to tolerance Skilled Intervention: Manual skills to improve joint mobility, ROM, and decrease pain. Utilized anatomy knowledge of the therapist, and assessment of patient's response to intervention. Billing Therapeutic Exercise Treatment Minutes: 30 Manual TherapyTreatment Minutes: 10 Total Treatment Time Minutes (timed/untimed): 40 Tigist Marx PT documented in this encounter [facility] 10-26-2022 Note HNO ID: [id number] Author: Johanna Madison PA-C Service: ? Author Type: Physician Research Nurse Type: Progress Notes Filed: 10/26/2022 11:14 AM Note Text: 57 year old male with c/o continued right shouder pain to point unable to sleep, can hardly move, trouble dressing. Missed a few PT sessions. Oxaprozin helps a little. HISTORIES FAMILY HISTORY Problem Relation Age of Onset Heart Mother Kidney Disease Mother COPD Mother Hypertension Mother Heart Sister Cancer Father at 49 yo Lung Hypertension Sister Ataxia Child Drug abuse Child PAST MEDICAL HISTORY Diagnosis Date Anxiety Ataxia 2019 Hypothyroid Obstructive sleep apnea Substance abuse (HCC) PAST SURGICAL HISTORY Procedure Laterality Date COLONOSCOPY 02/09/2020 EGD 02/09/2020 Social History Tobacco Use Smoking status: Former Packs/day: 0.15 Years: 37.00 Pack years: 5.55 Types: Cigarettes Quit date: 10/07/2015 Years since quittin.0 Smokeless tobacco: Current Types: Chew Tobacco comments: 37 years ON AND OFF Substance Use Topics Alcohol use: No Drug use: Yes Comment: 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 02/09/2014 last use. Pt states relapsing 4 months ago ACTIVE PROBLEM LIST Imbalance Cerebellar Ataxia (Hcc) Ataxic Gait Anxiety Family History of Alcohol Abuse and Dependence History of Drug Abuse (Hcc) Abnormality of Gait Hypothyroid Mario (Obstructive Sleep Apnea) Prediabetes History of Colonic Polyps Gastritis Cervicalgia Acute Pain of Right Shoulder Current Outpatient Medications Medication Sig Dispense Refill cyclobenzaprine (FLEXERIL) 10 mg tablet Take 1 tablet by mouth three times daily as needed for muscle spasm. 30 tablet 2 oxaprozin (DAYPRO) 600 mg tablet Take 2 tablets by mouth once daily. 60 tablet 2 levothyroxine (SYNTHROID) 50 mcg tablet Take 1 tablet by mouth once daily. Take on empty stomach. For Thyroid. 90 tablet 0 buPROPion XL (WELLBUTRIN XL) 150 mg 24 hr tablet Take 1 tablet by mouth once daily. 90 tablet 3 metFORMIN (GLUCOPHAGE) 1,000 mg tablet Take 1 tablet by mouth daily with breakfast. 90 tablet 5 omeprazole (PRILOSEC) 40 mg capsule Take 1 capsule by mouth once daily as needed. 30 capsule 2 Current Facility-Administered Medications Medication Dose Route Frequency Provider Last Rate Last Admin betamethasone acetate-betamethasone sodium phosphate 6 mg, BUPivacaine (PF) 0.25 % (2.5 mg/mL) 5 mg, lidocaine (PF) 10 mg/mL (1 %) 20 mg INTRA-ARTICULAR ONCE M LOY AlC HEPATITIS B(1 of 3 - 3-dose series) Never done DTAP,TDAP,TD(1 - Tdap) Never done SHINGRIX VACCINE(1 of 2) Never done COVID-19 VACCINE(2 - Booster for Andrea series) due on 05/18/2021 PROSTATE CANCER SCREENING DISCUSSION due on 04/24/2022 DEPRESSION ASSESSMENT Never done EXAM: BP 118/66 Pulse 108 Resp 16 Wt 103.9 kg (229 lb) SpO2 98% BMI 30.21 kg/m? Pleasant overweight adult man in no acute distress. Alert and oriented all spheres. Normal affect and cognition. Speech normal. No deficits to learning or comprehension. Skin warm, dry, pink to lips and nailbeds. Normal turgor. Respirations regular and unlabored. Chest is normal shape. Lungs are clear to all mazariegos with good air exchange through out. HRRR without murmur or gallop. No lifts, heaves, or rubs. Extrem: no clubbing or cyanosis. Edema: none. Extremities are warm and pink with prompt capillary refill. Right shoulder persistent pain flexion, abduction, internal rotation. Tender in glenohumeral groove more than subacromial. Able to ouch opposite shoulder. Discussed steroid injection risks and benefits as well as options for PT or orthopedic referral. Wishes to proceed with steroid injection, site, ID, allergies verified. Injected celestone 6mg 1ml/ mixed with Xylocaine 1% 2ml and Marcaine 0.5% 2ml into right shoulder glenohumeral. Had marked improvement in ROM and pain within a few minutes with fully restored ROM- much better than last injection. ASSESSMENT/PLAN: 1. Impingement of right shoulder - ICD9: , ICD10: M25.811 Rest 5 days with shoulder. F/u with PT. Recheck if not improving in 4 weeks. - CAM RAMANA INJECTION BUILDER M Noah Madison PA-C Some of this note may have been copied and pasted for the purpose of history context and comparison. [facility] 10-26-2022 History of Presen t illness Narrative 57 year old male with c/o continued right shouder pain to point unable to sleep, can hardly move, trouble dressing. Missed a few PT sessions. Oxaprozin helps a little. HISTORIES FAMILY HISTORY Problem Relation Age of Onset Heart Mother Kidney Disease Mother COPD Mother Hypertension Mother Heart Sister Cancer Father at 49 yo Lung Hypertension Sister Ataxia Child Drug abuse Child PAST MEDICAL HISTORY Diagnosis Date Anxiety Ataxia 2019 Hypothyroid Obstructive sleep apnea Substance abuse (HCC) PAST SURGICAL HISTORY Procedure Laterality Date COLONOSCOPY 02/09/2020 EGD 02/09/2020 Social History Tobacco Use Smoking status: Former Packs/day: 0.15 Years: 37.00 Pack years: 5.55 Types: Cigarettes Quit date: 10/07/2015 Years since quittin.0 Smokeless tobacco: Current Types: Chew Tobacco comments: 37 years ON AND OFF Substance Use Topics Alcohol use: No Drug use: Yes Comment: 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 02/09/2014 last use. Pt states relapsing 4 months ago ACTIVE PROBLEM LIST Imbalance Cerebellar Ataxia (Hcc) Ataxic Gait Anxiety Family History of Alcohol Abuse and Dependence History of Drug Abuse (Hcc) Abnormality of Gait Hypothyroid Mario (Obstructive Sleep Apnea) Prediabetes History of Colonic Polyps Gastritis Cervicalgia Acute Pain of Right Shoulder Current Outpatient Medications Medication Sig Dispense Refill cyclobenzaprine (FLEXERIL) 10 mg tablet Take 1 tablet by mouth three times daily as needed for muscle spasm. 30 tablet 2 oxaprozin (DAYPRO) 600 mg tablet Take 2 tablets by mouth once daily. 60 tablet 2 levothyroxine (SYNTHROID) 50 mcg tablet Take 1 tablet by mouth once daily. Take on empty stomach. For Thyroid. 90 tablet 0 buPROPion XL (WELLBUTRIN XL) 150 mg 24 hr tablet Take 1 tablet by mouth once daily. 90 tablet 3 metFORMIN (GLUCOPHAGE) 1,000 mg tablet Take 1 tablet by mouth daily with breakfast. 90 tablet 5 omeprazole (PRILOSEC) 40 mg capsule Take 1 capsule by mouth once daily as needed. 30 capsule 2 Current Facility-Administered Medications Medication Dose Route Frequency Provider Last Rate Last Admin betamethasone acetate-betamethasone sodium phosphate 6 mg, BUPivacaine (PF) 0.25 % (2.5 mg/mL) 5 mg, lidocaine (PF) 10 mg/mL (1 %) 20 mg INTRA-ARTICULAR ONCE M Noah Madison PA-C HEPATITIS B(1 of 3 - 3-dose series) Never done DTAP,TDAP,TD(1 - Tdap) Never done SHINGRIX VACCINE(1 of 2) Never done COVID-19 VACCINE(2 - Booster for Andrea series) due on 05/18/2021 PROSTATE CANCER SCREENING DISCUSSION due on 04/24/2022 DEPRESSION ASSESSMENT Never done EXAM: BP 118/66 Pulse 108 Resp 16 Wt 103.9 kg (229 lb) SpO2 98% BMI 30.21 kg/m Pleasant overweight adult man in no acute distress. Alert and oriented all spheres. Normal affect and cognition. Speech normal. No deficits to learning or comprehension. Skin warm, dry, pink to lips and nailbeds. Normal turgor. Respirations regular and unlabored. Chest is normal shape. Lungs are clear to all mazariegos with good air exchange through out. HRRR without murmur or gallop. No lifts, heaves, or rubs. Extrem: no clubbing or cyanosis. Edema: none. Extremities are warm and pink with prompt capillary refill. Right shoulder persistent pain flexion, abduction, internal rotation. Tender in glenohumeral groove more than subacromial. Able to ouch opposite shoulder. Discussed steroid injection risks and benefits as well as options for PT or orthopedic referral. Wishes to proceed with steroid injection, site, ID, allergies verified. Injected celestone 6mg 1ml/ mixed with Xylocaine 1% 2ml and Marcaine 0.5% 2ml into right shoulder glenohumeral. Had marked improvement in ROM and pain within a few minutes with fully restored ROM- much better than last injection. ASSESSMENT/PLAN: 1. Impingement of right shoulder - ICD9: , ICD10: M25.811 Rest 5 days with shoulder. F/u with PT. Recheck if not improving in 4 weeks. - CAM RAMANA INJECTION BUILDER Johanna Madison PA-C Some of this note may have been copied and pasted for the purpose of history context and comparison. documented in this encounter [facility] 09-26-2022 Note HNO ID: [id number] Author: Tigist Marx PT Service: ? Author Type: Physical Therapist Type: Progress Notes Filed: 09/26/2022 1:00 PM Note Text: Episode Visit Count: 1 Therapist That Will Accept/Oversee The Plan Of Care: Tigist Marx Start of Care Date: 09/26/22 Onset Date: 09/26/21 Patient Identified by Name and Date of : Yes REHABILITATION AND SPORTS THERAPY PHYSICAL THERAPY EVALUATION PLAN OF CARE: Assessment: Tu Scales presents with chief complaint of R shoulder pain that interferes with heavy exertion, lifting, physical activities, recreational activities, working, sleeping, reaching behind back, reaching overhead, use hand with arm at shoulder level, driving . He presents with impairments in ADL's, overall function, range of motion, strength, symptom management, and tissue tenderness. PROMIS? (Patient-Reported Outcomes Measurement Information System) scores were reviewed and physical function domain identified as a rehabilitation concern. Prognosis for therapy is Fair due to: clinical presentation, multiple co- morbidities, chronic nature of impairments, limited tolerance to activity, limited support system, occupational demands . He will benefit from skilled therapy services to meet the goals established for this plan of care as noted below. Goals for Episode of Care: created on 09/26/22 through 11/24/22 [place] in home exercise program. Patient will decrease pain rating by 2 points to meet minimal clinical important difference for numeric pain rating scale. Patient will demonstrate increase in R shoulder strength to 4+/5 during manual muscle testing in order to improve function for basic self-care tasks, home management tasks, leisure / recreation skills, light functional tasks, moderate to heavy functional tasks, prior functional tasks, and work tasks. Perform reaching, lifting with decreased report of symptoms/pain in 6-8 weeks. Perform driving and self care without pain. Planned Interventions, Frequency, and Duration: Current Frequency: 1x/week Duration: 8 weeks Total Number of Visits Planned: 8 Planned Treatment Interventions: Therapeutic exercise (90278), Neuromuscular re-education (66857), Manual therapy (21149), Therapeutic activities (56322), Self-skilled nursing management (00300), Patient/Family/Caregiver Education, Body Mechanics Training PLAN FOR NEXT VISIT: Continue manual to infraspinatus, progress exercises as tolerated Patient demonstrates good understanding of plan of care and treatment. The above goals and plan of care were discussed and agreed upon by patient/family. 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[employer] Intake Information: Prescription present Previous Treatment: Injections Pain: Pain Pain Level: 10 Pain Location: Shoulder - Right Description: Sharp, Shooting, Aching Frequency: Continuous Post Treatment Pain Post Treatment Pain Level: 5 Post Treatment Pain Location: Shoulder - Right Post Treatment Pain Description: Dull PROMIS Scales Higher is Better 02/14/2016 10/07/2019 08/15/2022 GH Physical - Score - 37.4 26.7 (Poor) GH Physical - Percentile 10 % 10 % 1 % GH Mental - Score - 43.5 45.8 (Good) GH Mental - Percentile 34 % 26 % 34 % T-scores: mean of general population = 50. 5 points is clinically meaningfully difference Percentiles provide an indication of how the patient's score ranks in relation to the general population. Higher percentile rankings indicate better function/quality of life. 50th percentile is the average of the general population and indicates half of respondents had a worse score. T-scores: mean of general population = 50. 5 points is clinically meaningfully difference Percentiles provide an indication of how the patient's score ranks in relation to the general population. Higher percentile rankings indicate better function/quality of life. 50th percentile is the average of the general population and indicates half of respondents had a worse score. OBJECTIVE MEASURES WITH LEVEL OF FUNCTION: Shoulder Observations R Shoulder Palpation Tenderness: Rotator cuff muscles, Comments R Shoulder Palpation Tenderness Comments: infraspinatus Cervical Spine ROM Cervical ROM : (WNL) UE AROM R UE AROM: Major limitations in flexion, abduction, and functional ER; Minimal limitations in Functional IR UE and Cervical Strength Strength Tested: Shoulder All R Shoulder Flexion: 3/5 R Shoulder Abduction (C5): 2+/5 R Shoulder Internal Rotation: 5/5 R Shoulder External Rotation: 2+/5 Spe (more content not included)... [facility] 09-26-2022 History of Presen t illness Narrative Episode Visit Count: 1 Therapist That Will Accept/Oversee The Plan Of Care: Tigist Marx Start of Care Date: 09/26/22 Onset Date: 09/26/21 Patient Identified by Name and Date of : Yes REHABILITATION AND SPORTS THERAPY PHYSICAL THERAPY EVALUATION PLAN OF CARE: Assessment: Tu Scales presents with chief complaint of R shoulder pain that interferes with heavy exertion, lifting, physical activities, recreational activities, working, sleeping, reaching behind back, reaching overhead, use hand with arm at shoulder level, driving . He presents with impairments in ADL's, overall function, range of motion, strength, symptom management, and tissue tenderness. PROMIS (Patient-Reported Outcomes Measurement Information System) scores were reviewed and physical function domain identified as a rehabilitation concern. Prognosis for therapy is Fair due to: clinical presentation, multiple co- morbidities, chronic nature of impairments, limited tolerance to activity, limited support system, occupational demands . He will benefit from skilled therapy services to meet the goals established for this plan of care as noted below. Goals for Episode of Care: created on 09/26/22 through 11/24/22 [place] in home exercise program. Patient will decrease pain rating by 2 points to meet minimal clinical important difference for numeric pain rating scale. Patient will demonstrate increase in R shoulder strength to 4+/5 during manual muscle testing in order to improve function for basic self-care tasks, home management tasks, leisure / recreation skills, light functional tasks, moderate to heavy functional tasks, prior functional tasks, and work tasks. Perform reaching, lifting with decreased report of symptoms/pain in 6-8 weeks. Perform driving and self care without pain. Planned Interventions, Frequency, and Duration: Current Frequency: 1x/week Duration: 8 weeks Total Number of Visits Planned: 8 Planned Treatment Interventions: Therapeutic exercise (87918), Neuromuscular re-education (75551), Manual therapy (66229), Therapeutic activities (39298), Self-skilled nursing management (44609), Patient/Family/Caregiver Education, Body Mechanics Training PLAN FOR NEXT VISIT: Continue manual to infraspinatus, progress exercises as tolerated Patient demonstrates good understanding of plan of care and treatment. The above goals and plan of care were discussed and agreed upon by patient/family. 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[employer] Intake Information: Prescription present Previous Treatment: Injections Pain: Pain Pain Level: 10 Pain Location: Shoulder - Right Description: Sharp, Shooting, Aching Frequency: Continuous Post Treatment Pain Post Treatment Pain Level: 5 Post Treatment Pain Location: Shoulder - Right Post Treatment Pain Description: Dull PROMIS Scales Higher is Better 02/14/2016 10/07/2019 08/15/2022 GH Physical - Score - 37.4 26.7 (Poor) GH Physical - Percentile 10 % 10 % 1 % GH Mental - Score - 43.5 45.8 (Good) GH Mental - Percentile 34 % 26 % 34 % T-scores: mean of general population = 50. 5 points is clinically meaningfully difference Percentiles provide an indication of how the patient's score ranks in relation to the general population. Higher percentile rankings indicate better function/quality of life. 50th percentile is the average of the general population and indicates half of respondents had a worse score. T-scores: mean of general population = 50. 5 points is clinically meaningfully difference Percentiles provide an indication of how the patient's score ranks in relation to the general population. Higher percentile rankings indicate better function/quality of life. 50th percentile is the average of the general population and indicates half of respondents had a worse score. OBJECTIVE MEASURES WITH LEVEL OF FUNCTION: Shoulder Observations R Shoulder Palpation Tenderness: Rotator cuff muscles, Comments R Shoulder Palpation Tenderness Comments: infraspinatus Cervical Spine ROM Cervical ROM : (WNL) UE AROM R UE AROM: Major limitations in flexion, abduction, and functional ER; Minimal limitations in Functional IR UE and Cervical Strength Strength Tested: Shoulder All R Shoulder Flexion: 3/5 R Shoulder Abduction (C5): 2+/5 R Shoulder Internal Rotation: 5/5 R Shoulder External Rotation: 2+/5 Special Tests - Shoulder Shoulder Special Tests: Empty Can, Biceps Load, Anterior Drawer, Speed's Anterior Drawer: Right Negative Biceps Load: Right Negative Empty Can: Right Positive Speed's: Right Negative Education: Education Learning/educational needs: Home exercise program, Plan of Care, Changes in Plan of Care, Body Mechanics TREATMENT: PT Treatment Interventions: Therapeutic Exercise, Manual Therapy Evaluation Therapeutic Exercise: 1: *Shoulder pulleys 3x20 into tolerated range (cued for pain free range vs pushing into pain) 2: *Wand ER 3x20 3: *Table top shoulder flexion slides 3x20 4: *Shoulder pendulums 3x20 5: *Shoulder flexion isometrics 3x10, 3 sec holds 6: *Discussed ways to perform exercises when no equipment is available Skilled Intervention: Patient was educated in proper exercise technique and purpose for exercises. Skilled judgment was provided in selection of appropriate interventions. Provided written instruction for home exercise program to facilitate proper performance and compliance. Correct performance of therapeutic exercises was facilitated with verbal, visual, and tactile cuing. Manual Therapy: 1: STM and TrPr to R infraspinatus with push to tolerance (showed ball against wall for HEP self STM) Skilled Intervention: Manual skills to improve joint mobility, ROM, and decrease pain. Utilized anatomy knowledge of the therapist, and assessment of patient's response to intervention. Billing * Evaluation Low Complexity: 1 Unit Therapeutic Exercise Treatment Minutes: 20 Manual TherapyTreatment Minutes: 5 Total Treatment Time Minutes (timed/untimed): 48 Tigist Marx PT documented in this encounter [facility] 09-21-2022 Note HNO ID: [id number] Author: Johanna Madison PA-C Service: ? Author Type: Physician Research Nurse Type: Progress Notes Filed: 09/21/2022 3:42 PM Note Text: 56 year old male with c/o annual follow up. Right shoulder pain following celestone injection 08/17/2022 Started hurting about a week ago again, asking for another injection. Advil Cerebellar ataxia (hcc) Coarse tremors Mario (obstructive sleep apnea) No recent fall, less frequent falls Less active compared to before Last fall was a month ago, no LOC or head trauma. Nervous and stress exacerbate symptoms. Feels like he is walking on rubber bands at times Coarse Tremor - Progressively worsening - B/L arms and legs - Intentional tremor, worse with actions Hypothyroidism, unspecified type (primary encounter diagnosis) Hypothyroidism Current medication: Levothyroxine 50mcg daily Taking as directed on an empty stomach? Yes. Thyroid pain: No. Mass effect: No. Change ins energy level/ fatigue? No. Sleep disturbance ? At time, due to pain. He cannot get comfortable. Temperature Intolerance: cold No, hot No. Change in bowel habits? No. If yes: Constipation? No. If yes: Diarrhea? No. If yes: Weight changes? Weight loss, due to healthy diet changes. Memory issues: No. Diaphoresis: No. Numbness, tingling None Radiological imaging with contrast dyes within the last 3 months? No. History of radiation exposure to head or neck area? No. Change in hair or skin? No. If yes: Other symptoms: Last 2 Encounter Wt Readings: Date: Wt: 08/17/2022 104.8 kg (231 lb) 06/19/2022 104.5 kg (230 lb 6.4 oz) Last thyroid labs: TSH Date Value 09/18/2022 3.000 mIU/L 04/29/2021 4.030 uU/mL 09/15/2020 4.160 uU/mL Prediabetes Healthy diet changes within the past few months. No blurred vision or diplopia, no numbness/tingling in hands or feet. Hemoglobin A1C (%) Date Value 09/18/2022 5.7 04/29/2021 5.6 04/01/2020 5.7 Anxiety Moderate episode of recurrent major depressive disorder (hcc) Stable with medication. Anxious at times, but no panic attacks or no thoughts of hurting himself. Current medications: Bupropion XL 150mg daily GERD Current medication: Omeprazole 40mg daily. Current symptoms: None. Last Mg level if on PPI chronically: 2.2 on 04/01/2020 Heartburn is controlled: Yes. Dysphagia: No. Bloody or black stools: No. Bowel changes: No. Last EGD and/or colonoscopy: 02/09/2020: EGD: z-line irregular bx, normal duodenum Colonoscopy 2-5mm polyp resected recto-sigmoid resected Path: Gastric:minimal chronic inflammation neg HPylori GEJ chronic inflammation, neg HPylori Colon: hyperplastic polyp HISTORIES FAMILY HISTORY Problem Relation Age of Onset Heart Mother Kidney Disease Mother COPD Mother Hypertension Mother Heart Sister Cancer Father at 49 yo Lung Hypertension Sister Ataxia Child Drug abuse Child PAST MEDICAL HISTORY Diagnosis Date Anxiety Ataxia 2019 Hypothyroid Obstructive sleep apnea Substance abuse (HCC) PAST SURGICAL HISTORY Procedure Laterality Date COLONOSCOPY 02/09/2020 EGD 02/09/2020 Social History Tobacco Use Smoking status: Former Packs/day: 0.15 Years: 37.00 Pack years: 5.55 Types: Cigarettes Quit date: 10/07/2015 Years since quittin.9 Smokeless tobacco: Current Types: Chew Tobacco comments: 37 years ON AND OFF Substance Use Topics Alcohol use: No Drug use: Yes Comment: 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 02/09/2014 last use. Pt states relapsing 4 months ago ACTIVE PROBLEM LIST Imbalance Cerebellar Ataxia (Hcc) Ataxic Gait Anxiety Family History of Alcohol Abuse and Dependence History of Drug Abuse (Hcc) Abnormality of Gait Hypothyroid Mario (Obstructive Sleep Apnea) Prediabetes History of Colonic Polyps Gastritis Cervicalgia Current Outpatient Medications Medication Sig Dispense Refill levothyroxine (SYNTHROID) 50 mcg tablet Take 1 tablet by mouth once daily. Take on empty stomach. For Thyroid. 90 tablet 0 buPROPion XL (WELLBUTRIN XL) 150 mg 24 hr tablet Take 1 tablet by mouth once daily. 90 tablet 3 metFORMIN (GLUCOPHAGE) 1,000 mg tablet Take 1 tablet by mouth daily with breakfast. 90 tablet 5 omeprazole (PRILOSEC) 40 mg capsule Take 1 capsule by mouth once daily as needed. 30 capsule 2 No current facility-administered medications for this visit. HEPATITIS B(1 of 3 - 3-dose series) Never done DTAP,TDAP,TD(1 - Tdap) Never done SHINGRIX VACCINE(1 of 2) Never done COVID-19 VACCINE(2 - Booster for Andrea series) due on 05/18/2021 INFLUENZA(1) due on 04/12/2022 PROSTATE CANCER SCREENING DISCUSSION due on 04/24/2022 DEPRESSION ASSESSMENT Never done EXAM: BP 132/78 Pulse 80 Wt 102.1 kg (225 lb) SpO2 98% BMI 29.69 kg/m? Pleasant overweight male in no acute distress. Alert and oriented all spheres. Normal affect and cognition. Speech normal. No def (more content not included)... [facility] 09-21-2022 Instructions Johanna Madison PA-C - 09/21/2022 3:42 PM EST Rest in a comfortable position. Avoid activities or positions which increase pain. Please review the sheet of exercises provided for stretching. No over head lifting, or extended arm pushing or pulling over the next few days. Moist heat generally also helps muscles to relax, You may apply it for 10-15 minutes every few hours if needed. Ice may also help similarly to block pain Call with a progress report over the next few days. See AAOS sheet on shoulder rehab. Please schedule PT. Flexeril is a muscle relaxer which can cause drowsiness and may be habit forming if used regularly for extended periods. You should not drink alcohol, drive, or operate dangerous machinery while taking this medication. DayPro 2 tabs daily routinely until pain is fully resolved, then prn. DayPro may cause stomach symptoms including ulceration, bleeding, nausea, pain, and diarrhea. Make sure to take it with food. If you are known to have allergy to anti-inflamatories medications, or have known kidney disease, make sure we know this before you take the medication. documented in this encounter [facility] 09-21-2022 History of Presen t illness Narrative 56 year old male with c/o annual follow up. Right shoulder pain following celestone injection 08/17/2022 Started hurting about a week ago again, asking for another injection. Advil Cerebellar ataxia (hcc) Coarse tremors Mario (obstructive sleep apnea) No recent fall, less frequent falls Less active compared to before Last fall was a month ago, no LOC or head trauma. Nervous and stress exacerbate symptoms. Feels like he is walking on rubber bands at times Coarse Tremor - Progressively worsening - B/L arms and legs - Intentional tremor, worse with actions Hypothyroidism, unspecified type (primary encounter diagnosis) Hypothyroidism Current medication: Levothyroxine 50mcg daily Taking as directed on an empty stomach? Yes. Thyroid pain: No. Mass effect: No. Change ins energy level/ fatigue? No. Sleep disturbance ? At time, due to pain. He cannot get comfortable. Temperature Intolerance: cold No, hot No. Change in bowel habits? No. If yes: Constipation? No. If yes: Diarrhea? No. If yes: Weight changes? Weight loss, due to healthy diet changes. Memory issues: No. Diaphoresis: No. Numbness, tingling None Radiological imaging with contrast dyes within the last 3 months? No. History of radiation exposure to head or neck area? No. Change in hair or skin? No. If yes: Other symptoms: Last 2 Encounter Wt Readings: Date: Wt: 08/17/2022 104.8 kg (231 lb) 06/19/2022 104.5 kg (230 lb 6.4 oz) Last thyroid labs: TSH Date Value 09/18/2022 3.000 mIU/L 04/29/2021 4.030 uU/mL 09/15/2020 4.160 uU/mL Prediabetes Healthy diet changes within the past few months. No blurred vision or diplopia, no numbness/tingling in hands or feet. Hemoglobin A1C (%) Date Value 09/18/2022 5.7 04/29/2021 5.6 04/01/2020 5.7 Anxiety Moderate episode of recurrent major depressive disorder (hcc) Stable with medication. Anxious at times, but no panic attacks or no thoughts of hurting himself. Current medications: Bupropion XL 150mg daily GERD Current medication: Omeprazole 40mg daily. Current symptoms: None. Last Mg level if on PPI chronically: 2.2 on 04/01/2020 Heartburn is controlled: Yes. Dysphagia: No. Bloody or black stools: No. Bowel changes: No. Last EGD and/or colonoscopy: 02/09/2020: EGD: z-line irregular bx, normal duodenum Colonoscopy 2-5mm polyp resected recto-sigmoid resected Path: Gastric:minimal chronic inflammation neg HPylori GEJ chronic inflammation, neg HPylori Colon: hyperplastic polyp HISTORIES FAMILY HISTORY Problem Relation Age of Onset Heart Mother Kidney Disease Mother COPD Mother Hypertension Mother Heart Sister Cancer Father at 49 yo Lung Hypertension Sister Ataxia Child Drug abuse Child PAST MEDICAL HISTORY Diagnosis Date Anxiety Ataxia 2019 Hypothyroid Obstructive sleep apnea Substance abuse (HCC) PAST SURGICAL HISTORY Procedure Laterality Date COLONOSCOPY 02/09/2020 EGD 02/09/2020 Social History Tobacco Use Smoking status: Former Packs/day: 0.15 Years: 37.00 Pack years: 5.55 Types: Cigarettes Quit date: 10/07/2015 Years since quittin.9 Smokeless tobacco: Current Types: Chew Tobacco comments: 37 years ON AND OFF Substance Use Topics Alcohol use: No Drug use: Yes Comment: 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 02/09/2014 last use. Pt states relapsing 4 months ago ACTIVE PROBLEM LIST Imbalance Cerebellar Ataxia (Hcc) Ataxic Gait Anxiety Family History of Alcohol Abuse and Dependence History of Drug Abuse (Hcc) Abnormality of Gait Hypothyroid Mario (Obstructive Sleep Apnea) Prediabetes History of Colonic Polyps Gastritis Cervicalgia Current Outpatient Medications Medication Sig Dispense Refill levothyroxine (SYNTHROID) 50 mcg tablet Take 1 tablet by mouth once daily. Take on empty stomach. For Thyroid. 90 tablet 0 buPROPion XL (WELLBUTRIN XL) 150 mg 24 hr tablet Take 1 tablet by mouth once daily. 90 tablet 3 metFORMIN (GLUCOPHAGE) 1,000 mg tablet Take 1 tablet by mouth daily with breakfast. 90 tablet 5 omeprazole (PRILOSEC) 40 mg capsule Take 1 capsule by mouth once daily as needed. 30 capsule 2 No current facility-administered medications for this visit. HEPATITIS B(1 of 3 - 3-dose series) Never done DTAP,TDAP,TD(1 - Tdap) Never done SHINGRIX VACCINE(1 of 2) Never done COVID-19 VACCINE(2 - Booster for Andrea series) due on 05/18/2021 INFLUENZA(1) due on 04/12/2022 PROSTATE CANCER SCREENING DISCUSSION due on 04/24/2022 DEPRESSION ASSESSMENT Never done EXAM: BP 132/78 Pulse 80 Wt 102.1 kg (225 lb) SpO2 98% BMI 29.69 kg/m Pleasant overweight male in no acute distress. Alert and oriented all spheres. Normal affect and cognition. Speech normal. No deficits to learning or comprehension. Skin warm, dry, pink to lips and nailbeds. Normal turgor. Respirations regular and unlabored. Extrem: no clubbing or cyanosis. Edema: none. Extremities are warm and pink with prompt capillary refill. ASSESSMENT/PLAN: 1. Hypothyroidism, unspecified type - ICD9: 244.9, ICD10: E03.9 (primary diagnosis) - Stable, medication is working well. - Instructed patient on importance of taking on an empty stomach either first thing in the morning or at bedtime. - continue current dose of Synthroid 0.050 mg 2. 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 Coarse tremors - ICD9: 781.0, ICD10: G25.2 - Progressively worsening - No current medications 4. MARIO (obstructive sleep apnea) - ICD9: 327.23, ICD10: G47.33 - Improving with weight loss - Not using CPAP machine as much due to tossing and turning in sleep 5. Prediabetes - ICD9: 790.29, ICD10: R73.03 - Last A1C 5.7 - Stable with diet 6. Anxiety - ICD9: 300.00, ICD10: F41.9 - Stable - Continue Wellbutrin 7. Moderate episode of recurrent major depressive disorder (HCC) - ICD9: 296.32, ICD10: F33.1 - Continue Wellbutrin 8. GERD without esophagitis - ICD9: 530.81, ICD10: K21.9 - Well managed with medication - Discussed lifestyle modifications including losing weight, limiting caffeine, no meals three hours before sleep, and head of bed elevation - Continue treatment with Prilosec 40 mg daily 9. Acute pain of right shoulder - ICD9: 719.41, ICD10: M25.511 Schedule consult PT Johanna Madison PA-C Some of this note may have been copied and pasted for the purpose of history context and comparison. documented in this encounter [facility] 09-18-2022 Miscellaneous Notes Patient notified. Scheduled. Needs to complete fasting labwork and schedule follow up - overdue. Refilled 3 months only Refill on 09/18/22 TSH BLD CBC COMP METABOLIC PANEL HGB A1C Brenton Woody PA-C Last office visit: 08/17/22 F/u scheduled: none Anu Gutierrez Ma Patient has been identified by name and date of : Yes Requested Prescriptions Pending Prescriptions Disp Refills levothyroxine (SYNTHROID) 50 mcg tablet 90 tablet 3 Sig: Take 1 tablet by mouth once daily. Take on empty stomach. For Thyroid. RX INSTRUCTIONS: Patient aware RX escripted to mail away pharmacy. No need to notify patient. Camille Birmingham Pss documented in this encounter [facility] 09-18-2022 Miscellaneous Notes Patient scheduled. Notified to have labs completed. Verbalized understanding. See other note rx refill. Needs to follow up in office, please schedule. Brenton Woody PA-C Patient had injection 08/17/22 Araceli Elaine Ma Tu Scales is calling M Noah Madison PA-C today he is calling to ask when he can receive another right shoulder injection. He stated it has worn off. Please call the patient. Patient has been identified by name and birthdate. Duration of symptoms: N/A Person calling: self Call patient at: on cell [phone] (home) [phone] (cell) Was an appointment scheduled: No Closing statement: Results or non-symptom based questions: Thank you for calling [facility], your call will be returned within the next business day. Camille Honeycutt documented in this encounter [facility] 08-17-2022 History of Presen t illness Narrative 56 year old male with c/o shoulder pain over last 2 months progressive, Unsure exactly when it started. Radiates to chest and neck sometimes. Aching and burning. Last visit 05/19/2021 rib fractures resolved, doing well. HISTORIES FAMILY HISTORY Problem Relation Age of Onset Heart Mother Kidney Disease Mother COPD Mother Hypertension Mother Heart Sister Cancer Father at 49 yo Lung Hypertension Sister Ataxia Child Drug abuse Child PAST MEDICAL HISTORY Diagnosis Date Anxiety Ataxia 2019 Hypothyroid Obstructive sleep apnea Substance abuse (HCC) PAST SURGICAL HISTORY Procedure Laterality Date COLONOSCOPY 02/09/2020 EGD 02/09/2020 Social History Tobacco Use Smoking status: Former Packs/day: 0.15 Years: 37.00 Pack years: 5.55 Types: Cigarettes Quit date: 10/07/2015 Years since quittin.8 Smokeless tobacco: Current Types: Chew Tobacco comments: 37 years ON AND OFF Substance Use Topics Alcohol use: No Drug use: Yes Comment: 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 02/09/2014 last use. Pt states relapsing 4 months ago ACTIVE PROBLEM LIST Imbalance Cerebellar Ataxia (Hcc) Ataxic Gait Anxiety Family History of Alcohol Abuse and Dependence History of Drug Abuse (Hcc) Abnormality of Gait Hypothyroid Mario (Obstructive Sleep Apnea) Prediabetes History of Colonic Polyps Gastritis Cervicalgia Current Outpatient Medications Medication Sig Dispense Refill buPROPion XL (WELLBUTRIN XL) 150 mg 24 hr tablet Take 1 tablet by mouth once daily. 90 tablet 3 metFORMIN (GLUCOPHAGE) 1,000 mg tablet Take 1 tablet by mouth daily with breakfast. 90 tablet 5 levothyroxine (SYNTHROID) 50 mcg tablet Take 1 tablet by mouth once daily. Take on empty stomach. For Thyroid. 90 tablet 1 HYDROcodone-acetaminophen (NORCO) 5-325 mg per tablet Take by mouth every 6 hours as needed. celecoxib (CELEBREX) 200 mg capsule Take 1 capsule by mouth twice daily. (Patient taking differently: Take 200 mg by mouth as needed. ) 60 capsule 1 omeprazole (PRILOSEC) 40 mg capsule Take 1 capsule by mouth once daily as needed. 30 capsule 2 CPAP autoPAP 5-20 cmH2O, mask, tubing, filters, heated humidity, lifetime supplies. Dx: MARIO (Patient not taking: Reported on 09/07/2021 ) 1 Device 0 No current facility-administered medications for this visit. HEPATITIS B(1 of 3 - 3-dose series) Never done DTAP,TDAP,TD(1 - Tdap) Never done SHINGRIX VACCINE(1 of 2) Never done COVID-19 VACCINE(2 - Booster for Andrea series) due on 05/18/2021 INFLUENZA(1) due on 04/12/2022 PROSTATE CANCER SCREENING DISCUSSION due on 04/24/2022 ANNUAL PCP TEAM CHRONIC DISEASE VISIT due on 05/19/2022 DEPRESSION ASSESSMENT Never done EXAM: BP 122/80 Pulse 81 Resp 16 Wt 104.8 kg (231 lb) SpO2 99% BMI 30.48 kg/m Pleasant overweight adult man in no acute distress. Alert and oriented all spheres. Normal affect and cognition. Speech normal. No deficits to learning or comprehension. Skin warm, dry, pink to lips and nailbeds. Normal turgor. Respirations regular and unlabored. Chest is normal shape. Lungs are clear to all mazariegos with good air exchange through out. HRRR without murmur or gallop. No lifts, heaves, or rubs. Extrem: no clubbing or cyanosis. Edema: none. Extremities are warm and pink with prompt capillary refill. Neuro: Continues with mildly slurred speech, mild gait instability, wide-based stance, off balance when standing still without holding on. Right shoulder painful with motion above about 70 to 80 degrees in flexion or abduction, positive Sanz, positive liftoff, negative [place]'s. Positive tenderness subacromial lateral and glenohumeral humeral palpation in full external rotation. X-rays show preserved joint space, mild acromial spur pending radiology. ASSESSMENT/PLAN: 1. Acute pain of right shoulder - ICD9: 719.41, ICD10: M25.511 Multidirectional pain with relatively benign x-ray, suspect bursitis Discussed steroid injection risks and benefits as well as side effects of teroid, options for PT or orthopedic referral. Wishes to proceed with steroid injection, site, ID, allergies verified. Consent completed. Injected Celelstone 6mg/1ml mixed with xylocaine 1% 3ml into right shoulder posterior. Had marked improvement in ROM and pain within a few minutes. 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 Tylenol if needed for pain. Consider PT if recurrent. F/u prn Johanna Madison PA-C documented in this encounter [facility] 11-21-2021 Miscellaneous Notes Patient has been identified by name and date of : Yes Patient phones for refill(s): Pending Prescriptions Disp Refills BUPROPION XL 150 MG TAB 90 tablet 3 Sig: Take 1 tablet by mouth once daily. AMEE: No METFORMIN 1,000 MG TABLET 90 tablet 5 Sig: Take 1 tablet by mouth daily with breakfast. AMEE: No Date of last office visit in primary care: 05/19/21 Please advise. Thank you. Loly Oates LPN documented in this encounter [facility] Acute pain of right shoulder- Primary [facility] Diagnosis Prediabetes- Primary Other abnormal glucose Hypothyroidism, unspecified type Anxiety Anxiety state, unspecified [facility] Diagnosis Hypothyroidism, unspecified type- Primary Cerebellar ataxia (HCC) Other cerebellar ataxia Coarse tremors Abnormal involuntary movements MARIO (obstructive sleep apnea) Obstructive sleep apnea (adult) (pediatric) Prediabetes Other abnormal glucose Anxiety Anxiety state, unspecified Moderate episode of recurrent major depressive disorder (HCC) GERD without esophagitis Esophageal reflux Acute pain of right shoulder documented in this encounter [facility] note* Diagnosis Acute pain of right shoulder- Primary documented in this encounter [facility] note* Diagnosis Impingement of right shoulder- Primary documented in this encounter [facility] note* Diagnosis Acute pain of right shoulder- Primary documented in this encounter [facility] note* Diagnosis Acute pain of right shoulder- Primary documented in this encounter [facility] note* Diagnosis Moderate episode of recurrent major depressive disorder (HCC) documented in this encounter [facility] note* Diagnosis Elevated BP without diagnosis of hypertension- Primary Anxiety about health documented in this encounter [facility] note* Diagnosis Preoperative clearance- Primary Preoperative examination, unspecified Elevated BP without diagnosis of hypertension Moderate episode of recurrent major depressive disorder (HCC) Prediabetes Other abnormal glucose documented in this encounter [facility] note* Diagnosis Hypothyroidism, unspecified type documented in this encounter [facility] for referral (narrative)* Diagnostic Procedure Only (Routine) - Closed Specialty Diagnoses / Procedures Referred By Contac t Referred To Contact XR IMAGING Diagnoses Acute pain of right shoulder Procedures XR SHOULDER GENERAL 3V OR MORE AP/TRUE AP/OTHER RIGHT RADEX SHOULDER COMPLETE MINIMUM 2 VIEWS Johanna Madison PA-C [address] [place] [address] Xr Imaging Referral ID Status Reason Start Date Expiration Date V isits Requested Visits Authorized [id number] Closed Auto-Generate d Referral 08/17/2022 09/16/2023 1 1 [facility] Medications Administered Section Inactive Administered Medications - up to 3 most recent administrations Medication Order MAR Action Action Date Dose Rate Site betamethasone acetate-betamethasone sodium phosphate 6 mg INTRA-ARTICULAR, ONCE, 1 dose, On Sat08/17/22 at 1530, Xylocaine 1% 3ml EXP: Given 08/18/2022 6:44 PM EST Shoulder, Right Inactive Administered Medications - up to 3 most recent administrations Medication Order MAR Action Action Date Dose Rate Site betamethasone acetate-betamethasone sodium phosphate 6 mg, BUPivacaine (PF) 0.25 % (2.5 mg/mL) 5 mg, lidocaine (PF) 10 mg/mL (1 %) 20 mg INTRA-ARTICULAR, ONCE, 1 dose, On Sat10/26/22 at 1130, EXP: Given 10/26/2022 11:09 AM EDT Shoulder, Right Reason for Referral Specialty Diagnoses / Procedures Referred By Contac t Referred To Contact [facility] Diagnoses Acute pain of right shoulder Procedures CONSULT TO PHYSICAL THERAPY PHYSICAL THERAPY EVALUATION HIGH COMPLEX 45 MINS Johanna Madison PA-C [address] [place] [id number] [facility] [address] [address] Referral ID Status Reason Start Date Expiration Date Visits Requested Visits Authorized [id number] Pending Review Auto-Generat ed Referral 09/21/2022 09/21/2023 1 1 Specialty Diagnoses / Procedures [facility] To [facility] Diagnoses Acute pain of right shoulder Procedures PT REHAB FOLLOW UP ORDER THERAPEUTIC EXERCISES RE, EA 15 MIN. Tigist Marx, PT [facility] [address] [address] Referral ID Status Reason Start Date Expiration Date Visits Requested Visits Authorized [id number] Pending Review PCP Requested Referral Auto-Generate d Referral 09/26/2022 12/25/2022 1 1 Specialty Diagnoses / Procedures [facility] To Contact [facility] Diagnoses Acute pain of right shoulder Procedures PT REHAB FOLLOW UP ORDER PT REHAB FOLLOW UP ORDER THERAPEUTIC EXERCISES RE, EA 15 MIN. Tigist Marx, PT [facility] [address] [address] Referral ID Status Reason Start Date Expiration Date Visits Requested Visits Authorized [id number] Pending Review PCP Requested Referral Auto-Generate d Referral 10/31/2022 01/29/2023 1 1 Summary Purpose Family History No Family History Records FoundNo Family History Records FoundNo Family History Records Found Advance Directives No Advanced Directives Records FoundNo Advanced Directives Records FoundNo Advanced Directives Records Found Additional Source Comments Source Comments (unrecognize d section and content) In the event this informatio n is protected by the Federal Confidentiality of Alcohol and Drug Abuse Patient Records regulations: The Federal rules restrict any use of the information to criminally investigate or prosecute any alcohol or drug abuse patient.[facility] event this information is protected by the Federal Confidentiality of Alcohol and Drug Abuse Patient Records regulations: The Federal rules restrict any use of the information to criminally investigate or prosecute any alcohol or drug abuse patient.[facility] the event this information is protected by the Federal Confidentiality of Alcohol and Drug Abuse Patient Records regulations: The Federal rules restrict any use of the information to criminally investigate or prosecute any alcohol or drug abuse patient.[facility] the event this information is protected by the Federal Confidentiality of Alcohol and Drug Abuse Patient Records regulations: The Federal rules restrict any use of the information to criminally investigate or prosecute any alcohol or drug abuse patient.[facility] the event this information is protected by the Federal Confidentiality of Alcohol and Drug Abuse Patient Records regulations: The Federal rules restrict any use of the information to criminally investigate or prosecute any alcohol or drug abuse patient.[facility] the event this information is protected by the Federal Confidentiality of Alcohol and Drug Abuse Patient Records regulations: The Federal rules restrict any use of the information to criminally investigate or prosecute any alcohol or drug abuse patient.[facility] the event this information is protected by the Federal Confidentiality of Alcohol and Drug Abuse Patient Records regulations: The Federal rules restrict any use of the information to criminally investigate or prosecute any alcohol or drug abuse patient.[facility]In the event this information is protected by the Federal Confidentiality of Alcohol and Drug Abuse Patient Records regulations: The Federal rules restrict any use of the information to criminally investigate or prosecute any alcohol or drug abuse patient.[facility] the event this information is protected by the Federal Confidentiality of Alcohol and Drug Abuse Patient Records regulations: The Federal rules restrict any use of the information to criminally investigate or prosecute any alcohol or drug abuse patient.[facility] HospitalIn the event this information is protected by the Federal Confidentiality of Alcohol and Drug Abuse Patient Records regulations: The Federal rules restrict any use of the information to criminally investigate or prosecute any alcohol or drug abuse patient.[facility]In the event this information is protected by the Federal Confidentiality of Alcohol and Drug Abuse Patient Records regulations: The Federal rules restrict any use of the information to criminally investigate or prosecute any alcohol or drug abuse patient.[facility] HospitalIn the event this information is protected by the Federal Confidentiality of Alcohol and Drug Abuse Patient Records regulations: The Federal rules restrict any use of the information to criminally investigate or prosecute any alcohol or drug abuse patient.[facility]In the event this information is protected by the Federal Confidentiality of Alcohol and Drug Abuse Patient Records regulations: The Federal rules restrict any use of the information to criminally investigate or prosecute any alcohol or drug abuse patient.[facility] HospitalIn the event this information is protected by the Federal Confidentiality of Alcohol and Drug Abuse Patient Records regulations: The Federal rules restrict any use of the information to criminally investigate or prosecute any alcohol or drug abuse patient.[facility] Reason for Visit (unrecogniz ed section and content) Reason Comments Pain Right shoulder, 2 mo nths Reason Onset Date Comments Refill Request 09/18/2022 Reason Comments Patient Question Right shoulder injec tion Reason Comments Follow Up Follow-up Shoulder Pain right Reason Comments PT Eval Specialty Diagnoses / Procedures Referred By Contac t Referred To Contact [facility] Diagnoses Acute pain of right shoulder Procedures CONSULT TO PHYSICAL THERAPY PHYSICAL THERAPY EVALUATION HIGH COMPLEX 45 MINS Johanna Madison PA-C [address] [place] [address] [facility] [address] [place] [address] Referral ID Status Reason Start Date Expiration Date V isits Requested Visits Authorized [id number] Closed Auto-Generate d Referral 09/22/2022 08/11/2023 1 1 Reason Comments Pain (Shoulder Pain) Right Reason Comments PT Progress Note Specialty Diagnoses / Procedures Referred By Lenny t Referred To Contact [facility] Diagnoses Acute pain of right shoulder Procedures PT REHAB FOLLOW UP ORDER THERAPEUTIC EXERCISES RE, EA 15 MIN. Tigist Marx, PT [facility] [address] [address] Referral ID Status Reason Start Date Expiration Date Visits Requested Visits Authorized [id number] Authorized PCP Requested Referral Auto-Generate d Referral 08/12/2022 08/11/2023 25 25 Reason Comments Physical Therapy Specialty Diagnoses / Procedures Referred By Lenny chávez Referred To Contact [facility] Diagnoses Acute pain of right shoulder Procedures PT REHAB FOLLOW UP ORDER THERAPEUTIC EXERCISES RE, EA 15 MIN. 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 Relationship Specialty Start Date End Date Johanna Madison PA-C [address] [place] [address] PCP - General Family Medicine 09/20/20 Butter Grader Relationship Specialty Start Date End Date Johanna Madison PA-C [address] [place] [address] PCP - General Family Medicine 09/20/20 Butter Grader Relationship Specialty Start Date End Date Johanna Madison PA-C [address] [place] [address] PCP - General Family Medicine 09/20/20 Butter Grader Relationship Specialty Start Date End Date Johanna Madison PA-C [address] [place], [place] [id number] PCP - General Family Medicine 09/20/20 Butter Grader Relationship Specialty Start Date End Date Johanna Madison PA-C [address] [place] [address] PCP - General Family Medicine 09/20/20 Butter Grader Relationship Specialty Start Date End Date Johanna Madison PA-C [address] [place] [address] PCP - General Family Medicine 09/20/20 Butter Grader Relationship Specialty Start Date End Date Johanna Madison PA-C [address] [place] [address] PCP - General Family Medicine 09/20/20 Butter Grader Relationship Specialty Start Date End Date Johanna Madison PA-C [address] [place] [address] PCP - General Family Medicine 09/20/20 Butter Grader Relationship Specialty Start Date End Date Johanna Madison PA-C [address] [place] [address] PCP - General Family Medicine 09/20/20 Butter Grader Relationship Specialty Start Date End Date Johanna Madison PA-C [address] [place] [address] PCP - General Family Medicine 09/20/20 Butter Grader Relationship Specialty Start Date End Date Johanna Madison PA-C [address] [place] [address] PCP - General Family Medicine 09/20/20 Butter Grader Relationship Specialty Start Date End Date Johanna Madison PA-C [address] [place] [address] PCP - General Family Medicine 09/20/20 (unrecognized sect ion and content) No Status Records FoundNo Status Records FoundNo Status Records Found INFORMATION SOURCE (unrecogn ized section and content) DATE CREATED AUTHOR AUTHOR'S JANELL ATION 08/18/2023 [facility] DATE CREATED AUTHOR AUTHOR'S ORGANIZ ATION 09/04/2023 [facility] FOR RECORDS PERTAINING TO PATIENTS WHO ARE OR HAVE BEEN ENROLLED IN A CHEMICAL DEPENDENCY/SUBSTANCEABUSE PROGRAM, SOME INFORMATION MAY BE OMITTED. This clinical summary was aggregated from multiple sources. Caution should be exercised in using it in the provision of clinical care. This summary normalizes information from multiple sources, and as a consequence, information in this document may materially change the coding, format and clinical context of patient data. In addition, data may be omitted in some cases. CLINICAL DECISIONS SHOULD BE BASED ON THE PRIMARY CLINICAL RECORDS. [employer] [facility]. provides no warranty or guarantee of the accuracy or completeness of information in this document.
[2023-10-19] MEDS: Oxycodone/Apap 5/325 Tablet PO (23:45)
[2023-10-19] MEDS: Lidocaine 5% Patch 1 PATCH TOPICAL (23:45)
[2023-10-19] MEDS: Ibuprofen 200 MG Tablet 400 MG PO (23:45)
[2023-10-19 23:48] VITALS: BP 140/87; PULSE 79; RESP 18; TEMP 36.4; O2SAT 98
== END 2023-10-19 23:56 | disposition home or self-care (01) ==
PROVIDERS: Emergency Provider Emergency Medicine; PCP Physician Assistant; Visit Provider Emergency Medicine
DX: S39.012A Strain of muscle, fascia and tendon of lower back, initial encounter (principal); E11.9 Type 2 diabetes mellitus without complications; E03.9 Hypothyroidism, unspecified; F17.220 Nicotine dependence, chewing tobacco, uncomplicated; Z79.899 Other long term (current) drug therapy; Z79.84 Long term (current) use of oral hypoglycemic drugs; X58.XXXA Exposure to other specified factors, initial encounter
CPT/HCPCS: 99284